=== PATIENT | male | born 1950 | race Caucasian/White ===

== ENCOUNTER 2021-03-29 13:24 | Inpatient (IN) | payer MEDICARE, MEDICAID, SELFPAY ==
[2021-03-29] VITALS (30 sets, daily range): BP systolic 103–160; BP diastolic 81–110; PULSE 96–163; RESP 16–46; TEMP 35.5; O2SAT 80–100
--- NOTE | 2021-03-29 11:57 | XR_ITS ---
WS: [id number] Exam: XR chest 1V portable [id number] Date/Time of Exam: 03/29/2021 11:57 AM Reason For Exam: resp distress Comparison 12/03/2016. Right upper lobe infiltrate noted suggesting pneumonia. 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 The lungs are fully expanded. Heart size is normal. Large hiatal hernia. Fullness of the mediastinum on the right is unchanged. Regional bony structures are intact. Monitoring leads superimp ose the chest. XR/XR chest 1V portable [id number] IMPRESSION: 1. Right upper lobe infiltrate suggesting pneumonia. 2. 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 3. Large hiatal hernia. Chronic widening of the right superior mediastinum.
--- NOTE | 2021-03-29 11:57 | ECG_ITS ---
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 Measurements Intervals [place] Rate: 97 P: 72 ND: 189 QRS: -26 QRSD: 89 T: 10 QT: 352 QTc: 448 Interpretive Statements Possible side RHYTHM WITH OCCASIONAL SUPRAVENTRICULAR PREMATURE COMPLEXES SEPTAL MYOCARDIAL INFARCTION , PROBABLY OLD [40+ ms Q WAVE IN V1/V2] INFERIOR MYOCARDIAL INFARCTION , OF INDETERMINATE AGE [40+ ms Q WAVE AND/OR ST/T ABNORMALITY IN II/aVF] Compared to ECG 12/03/2016 21:19:05 THe comparison is difficult because of the differences in technical quality Heavy baseline artifact, need to repeat Electronically Signed On 03-29-2021 17:50:45 TAIL BOARD WORKER by Zenaida Briones M.D. [id number]
--- NOTE | 2021-03-29 12:02 | W.ED.AMS ---
HPI - Altered Mental Status General: Chief Complaint: Altered Mental Status Stated Complaint: slurred speech, ams Source: EMS Mode of arrival: EMS Limitations: altered mental status History of Present Illness: HPI narrative: 70-year-old male brought in by EMS after family found him on the floor in his house with altered mental status. Last known well 2-3 days ago. Drinks a lot of alcohol per family, EMS did observe a large number of empty beer cans around the area where the patient was laying. Initial O2 sats 60s, improved to 90s on 15 L NRB Mentation improved slightly in route, he was able to follow directions, answer yes or no questions. No previous medical records available, MD complaint: altered mental status, confusion, decreased responsiveness and weakness Onset (ago): day(s) Context: alcohol abuse Treatments prior to arrival: IV fluid and oxygen Review of Systems General: Reports: ROS unobtainable due to mental status Const: Reports: body aches, change in appetite, fatigue and malaise Eyes: Reports: eye redness Card: Reports: acrocyanosis Resp: Reports: dyspnea, productive cough and chest congestion GI: Denies: nausea or vomiting Musc: Reports: joint pain and muscle weakness Skin/Breast: Reports: skin tenderness and sores Neuro: Reports: difficulty walking, behavioral changes, Slurred speech present and difficulty communicating thoughts Physical Exam Const: GENERAL APPEARANCE: in distress, disheveled, lethargic, ill appearing and frail appearing NUTRITIONAL APPEARANCE: cachectic ORIENTATION/CONSCIOUSNESS: Yes awake, Yes oriented to person, Yes oriented to place and Yes lethargic; not oriented to time HENMT: COMMON NORMALS: normocephalic and atraumatic HEAD & SCALP: normocephalic and atraumatic FACE & SINUS: face symmetric Eye: COMMON NORMALS: Equal, round and reactive pupils present, EOMs intact bilaterally, conjunctivae normal (Right eye watering) and no scleral icterus CONJUNCTIVA: Yes conjunctivae normal (Right eye watering) SCLERA: scleral abnormal Laterality of scleral abnormality: positive right scleral injection PUPIL: Yes Equal, round and reactive pupils present Neck/C-Spine: COMMON NORMALS: supple and no JVD GENERAL: Yes normal visual inspection Chest: COMMONS NORMALS: normal inspection of the chest Resp: EFFORT & INSPECTION: Yes symmetric chest movement, Yes abnormal respiratory pattern, Yes tachypneic, Yes labored, Yes Actively coughing rattling and No tracheal deviation AUSCULTATION: crackles, rhonchi throughout and bronchovesicular breath sounds Cardio: COMMON NORMALS: no JVD RHYTHM: abnormal rhythm irregularly irregular and with ectopic beats GI: COMMON NORMALS: Normal to inspection, nondistended, normoactive bowel sounds present and Soft to palpation PALPATION: Yes Soft to palpation and No Guarding due to palpation present (GI) : MALE GROIN/PERINEUM EXAM: No ecchymosis, No edema, No erythema and Yes tenderness PENIS: uncircumcised Back/Pelvis: GENERAL BACK: Yes erythema, Yes ecchymosis and Yes tenderness THORACIC SPINE/UPPER BACK: Yes other soft tissue findings Other thoracic soft tissue findings laterality: right Right other thoracic soft tissue findings details: erythema, ecchymosis, tenderness and other (Unstageable necrotic ulcer ) LUMBAR SPINE/LOWER BACK: Yes other soft tissue findings Other lumbar soft tissue findings laterality: bilateral Bilateral other lumbar soft tissue findings details: erythema, tenderness and other (Multiple sacral decubitus ulcers, necrotic, unstageable) PELVIS: Yes buttock abnormal Buttock abnormal laterality: bilateral Bilateral buttock abnormal details: tenderness, erythema and other (Diffuse erythema, 3 x 3 cm shallow ulceration right buttocks.) SACRUM: erythema and tenderness positive midline and bilaterally COCCYX: Coccyx tenderness present BACK IMAGE (MALE): 1. necrotic ulceration, surrounding ecchymosis 2. multiple coalescent necrotic ulcers, unstageable 3. 3x3cm shallow ulcer Extremity: NARRATIVE EXTREMITY EXAM: Scattered ecchymosis, abrasions in various stages of healing. GENERAL: Yes clubbing and Yes cyanosis RIGHT UPPER EXTREMITY: Yes elbow joint (Ecchymosis) Neuro: SENSORIUM/ORIENTATION: Yes oriented to person, Yes oriented to place, No oriented to time and Yes lethargic SPEECH: abnormal speech Details: garbled GAIT: Yes Unable to assess gait Psych: COMMON NORMALS: cooperative Skin: GENERAL SKIN EXAM: ecchymosis and turgor decreased WOUNDS: Yes wounds noted (Sacrum, right upper back) bed necrotic, margins necrotic, well approximated and with surrounding erythema and without odor NAILS: clubbing and discolored Sepsis: Is patient septic: Yes Focused sepsis exam performed: Yes Course Vital Signs: Vital signs: Vital Signs Temperature 95.9 F L 03/29/21 13:42 Pulse Rate 99 03/29/21 15:15 Respiratory Rate 46 H 03/29/21 15:15 Blood Pressure 123/92 03/29/21 15:00 Pulse Oximetry 98 03/29/21 15:15 MDM - Altered Mental Status MDM Narrative: Medical decision making narrative: 70-year-old brought in by ambulance with hypoxic respiratory distress and altered mental status. Problems; Acute renal failure Rhabdomyolysis, Sepsis without septic shock Numerous unstageable pressure wounds COVID?19 positive Multiple age-indeterminate vertebral fractures Subacute/age-indeterminate lacunar infarcts of the left cerebellum and basal ganglia. Aspiration pneumonia Treatments; IV Rocephin 1 g IV Zithromax 500 mg 2000 cc IV fluid bolus; lactic acid 8.7 --> 4.8, Maintenance fluids at 100/hr, Supplemental oxygen; initially required 15 L via NRB, weaned down to 4 L nasal cannula Decadron 6 mg IV Thiamine 100mg IV Plan: Continue IV fluids, closely monitor urine output. Trend CK. Wound care/general surgery consult re decubitus ulcers Monitor for signs and symptoms of alcohol withdrawal All Results and plan of care were discussed with the patient as well as several family members(over the phone). He stated multiple times that he did not want to be on a ventilator or recieve CPR. His family confirmed that he has discussed these wishes with them as well. He is agreeable to being admitted for further supportive care, Discussed with Dr Jackson, telephone quotation clerk hospitalist. Lab Data: Labs: Lab Results 03/29/21 03/29/21 03/29/21 12:15 12:15 12:15 WBC 6.4 10^3/uL 10^3/ uL (4.0-10.0) RBC 5.53 10^6/uL H 10 ^6/uL (4.1-5.3) Hgb 17.3 g/dL H g/dL (11.7-16.6) Hct 51.0 % % (42.0-52.0) MCV 92.2 fl fl (80-94) MCH 31.3 pg pg (28.0-34.0) MCHC 33.9 g/dL g/dL (30.0-36.0) RDW 12.4 % % (12.1-15.1) Plt Count 94 10^3/cmm L 10^ 3/cmm (130-400) MPV 13.0 fL H fL (7.4-10.4) Neut % (Auto) 92.1 % % Lymph % (Auto) 3.6 % % [place] % (Auto) 2.4 % % Eos % (Auto) 0.0 % % Baso % (Auto) 1.1 % % Neut # (Auto) 5.86 10^3/uL 10^3 /uL (1.8-7.7) Lymph # (Auto) 0.2 10^3/uL L 10^ 3/uL (0.8-4.8) [place] # (Auto) 0.2 10^3/uL 10^3/ uL (0.2-0.9) Eos # (Auto) 0.0 10^3/uL 10^3/ uL (0.0-0.8) Baso # (Auto) 0.1 10^3/uL 10^3/ uL (0.0-0.1) Nucleated RBC % (a uto) 0.5 % % Nucleated RBCs # 0.0 /100WBC /100W BC D-Dimer Specimen Type Sample Site ABG pH ABG pCO2 ABG pO2 ABG HCO3 ABG O2 Saturation ABG Base Excess Emil Test A-a O2 Gradient Hematocrit Hgb O2 Saturation Carboxyhemoglobin Methemoglobin Total Hemoglobin Ionized Calcium O2 Delivery Device O2 Liters/Min FiO2 Ore Fielder ID Sodium 140 mmol/L mmol/L (136-145) Potassium 3.7 mmol/L mmol/L (3.5-5.1) Chloride 97 mmol/L L mmol/ L (98-107) Carbon Dioxide 15 mmol/L L mmol/ L (22-29) Anion Gap 31.7 H (5-19) BUN 68 mg/dL H mg/dL (8-23) Creatinine 2.9 mg/dL H mg/dL (0.7-1.2) GFR Calculation Not Reportable Glucose 134 mg/dL H mg/dL (65-115) Calculated Osmolal ity 312 mOsm/kg H mOs m/kg (285-295) Lactic Acid 8.7 mmol/L H* mmo l/L (0.5-2.2) Lactic Acid (Sepsi s) Calcium 8.8 mg/dL mg/dL (8.5-10.5) Magnesium 2.7 mg/dL H mg/dL (1.7-2.3) Total Bilirubin 0.7 mg/dL mg/dL (0.15-1.2) AST 86 U/L H U/L (0-40) ALT 31 U/L U/L (0-41) Alkaline Phosphata se 102 IU/L IU/L (40-130) Creatine Kinase 1869 U/L H* U/L (39-308) NT-Pro-B Natriuret Pep 5569 pg/mL H pg/m L (0-125) Total Protein 7.5 g/dL g/dL (6.6-8.7) Albumin 2.6 g/dL L g/dL (3.5-5.2) Globulin 4.9 g/dL H g/dL (1.3-4.6) Procalcitonin TSH Urine Color Urine Appearance Urine pH Ur Specific Gravit y Urine Protein Urine Glucose (UA) Urine Ketones Urine Blood Urine Nitrate Urine Bilirubin Urine Urobilinogen Ur Leukocyte Charlene ase Urine RBC Urine WBC Ur Squamous Epith Cells Amorphous Sediment Urine Bacteria Hyaline Casts Urine Mucus Ethyl Alcohol < 10 mg/dL mg/dL (0-10) Coronavirus 229E ( PCR) SARS-CoV-2 (PCR) 03/29/21 03/29/21 03/29/21 12:15 12:15 12:40 WBC RBC Hgb Hct MCV MCH MCHC RDW Plt Count MPV Neut % (Auto) Lymph % (Auto) [place] % (Auto) Eos % (Auto) Baso % (Auto) Neut # (Auto) Lymph # (Auto) [place] # (Auto) Eos # (Auto) Baso # (Auto) Nucleated RBC % (a uto) Nucleated RBCs # D-Dimer 2.33 ug/mIFEU H u g/mIFEU (0-0.59) Specimen Type Sample Site ABG pH ABG pCO2 ABG pO2 ABG HCO3 ABG O2 Saturation ABG Base Excess Emil Test A-a O2 Gradient Hematocrit Hgb O2 Saturation Carboxyhemoglobin Methemoglobin Total Hemoglobin Ionized Calcium O2 Delivery Device O2 Liters/Min FiO2 Ore Fielder ID Sodium Potassium Chloride Carbon Dioxide Anion Gap BUN Creatinine GFR Calculation Glucose Calculated Osmolal ity Lactic Acid Lactic Acid (Sepsi s) Calcium Magnesium Total Bilirubin AST ALT Alkaline Phosphata se Creatine Kinase NT-Pro-B Natriuret Pep Total Protein Albumin Globulin Procalcitonin 1.24 ng/mL H ng/m L (0-0.5) TSH 1.15 uIU/mL uIU/m L (0.27-4.20) Urine Color Urine Appearance Urine pH Ur Specific Gravit y Urine Protein Urine Glucose (UA) Urine Ketones Urine Blood Urine Nitrate Urine Bilirubin Urine Urobilinogen Ur Leukocyte Charlene ase Urine RBC Urine WBC Ur Squamous Epith Cells Amorphous Sediment Urine Bacteria Hyaline Casts Urine Mucus Ethyl Alcohol Coronavirus 229E ( PCR) Not detected (NOT DETECT) SARS-CoV-2 (PCR) Detected A (NOT DETECT) 03/29/21 03/29/21 03/29/21 13:51 15:11 15:15 WBC RBC Hgb Hct MCV MCH MCHC RDW Plt Count MPV Neut % (Auto) Lymph % (Auto) [place] % (Auto) Eos % (Auto) Baso % (Auto) Neut # (Auto) Lymph # (Auto) [place] # (Auto) Eos # (Auto) Baso # (Auto) Nucleated RBC % (a uto) Nucleated RBCs # D-Dimer Specimen Type Arterial Sample Site Brachial, left ABG pH 7.39 (7.35-7.45) ABG pCO2 28.8 mmHg L mmHg (35-45) ABG pO2 61.4 mmHg L mmHg (80.0-100.0) ABG HCO3 17.4 mmol/L L mmo l/L (22-26) ABG O2 Saturation 86.5 ABG Base Excess -6.2 mmol/L L mmo l/L (-2.0-2.0) Emil Test N/a A-a O2 Gradient 20.6 mmHg H mmHg (5-10) Hematocrit 45.5 % % (42-52) Hgb O2 Saturation 86.1 % L % (95-100) Carboxyhemoglobin 0.1 %THgb L %THgb (0.4-20.1) Methemoglobin 0.3 % L % (0.4-1.5) Total Hemoglobin 14.9 g/dL g/dL (14-18) Ionized Calcium 1.1 mmol/L mmol/L (1.1-1.4) O2 Delivery Device Nc O2 Liters/Min 4.0 % % FiO2 36.0 % % Ore Fielder ID Amh Sodium 145.0 mmol/L H mm ol/L (131-143) Potassium 3.3 mmol/L L mmol /L (3.5-5.0) Chloride Carbon Dioxide Anion Gap BUN Creatinine GFR Calculation Glucose 129.0 mg/dL H mg/ dL (70-115) Calculated Osmolal ity Lactic Acid Lactic Acid (Sepsi s) 4.8 mmol/L H* mmo l/L (0.5-2.2) Calcium Magnesium Total Bilirubin AST ALT Alkaline Phosphata se Creatine Kinase NT-Pro-B Natriuret Pep Total Protein Albumin Globulin Procalcitonin TSH Urine Color Yellow (Yellow) Urine Appearance Sl hazy (CLEAR) Urine pH 5 (5-7) Ur Specific Gravit y 1.025 (1.005-1.030) Urine Protein Trace (Negative) Urine Glucose (UA) Norm (Normal) Urine Ketones 1+ H (Negative) Urine Blood 3+ H (Negative) Urine Nitrate Negative (Negative) Urine Bilirubin 2+ H (Negative) Urine Urobilinogen 1 mg/dL H mg/dL (Negative) Ur Leukocyte Charlene ase Negative (Negative) Urine RBC 0-4 /hpf H /hpf (0-2) Urine WBC 0-4 /hpf H /hpf (0-5) Ur Squamous Epith Cells 0-4 /hpf H /hpf (0-5) Amorphous Sediment 2+ /hpf /hpf Urine Bacteria None /hpf /hpf (NONE) Hyaline Casts 5-10 /lpf H /lpf Urine Mucus 4+ /hpf /hpf Ethyl Alcohol Coronavirus 229E ( PCR) SARS-CoV-2 (PCR) 03/29/21 17:00 WBC RBC Hgb Hct MCV MCH MCHC RDW Plt Count MPV Neut % (Auto) Lymph % (Auto) [place] % (Auto) Eos % (Auto) Baso % (Auto) Neut # (Auto) Lymph # (Auto) [place] # (Auto) Eos # (Auto) Baso # (Auto) Nucleated RBC % (a uto) Nucleated RBCs # D-Dimer Specimen Type Sample Site ABG pH ABG pCO2 ABG pO2 ABG HCO3 ABG O2 Saturation ABG Base Excess Emil Test A-a O2 Gradient Hematocrit Hgb O2 Saturation Carboxyhemoglobin Methemoglobin Total Hemoglobin Ionized Calcium O2 Delivery Device O2 Liters/Min FiO2 Ore Fielder ID Sodium Potassium Chloride Carbon Dioxide Anion Gap BUN Creatinine GFR Calculation Glucose Calculated Osmolal ity Lactic Acid 4.5 mmol/L H* mmo l/L (0.5-2.2) Lactic Acid (Sepsi s) Calcium Magnesium Total Bilirubin AST ALT Alkaline Phosphata se Creatine Kinase NT-Pro-B Natriuret Pep Total Protein Albumin Globulin Procalcitonin TSH Urine Color Urine Appearance Urine pH Ur Specific Gravit y Urine Protein Urine Glucose (UA) Urine Ketones Urine Blood Urine Nitrate Urine Bilirubin Urine Urobilinogen Ur Leukocyte Charlene ase Urine RBC Urine WBC Ur Squamous Epith Cells Amorphous Sediment Urine Bacteria Hyaline Casts Urine Mucus Ethyl Alcohol Coronavirus 229E ( PCR) SARS-CoV-2 (PCR) Critical Care Time Critical Care Time: Critical Care Time: Yes Total Critical Care Time: 45 Attestation: This case had a high probability of a clinically significant, sudden, or life threatening deterioration of this patient's condition which required my full and direct attention, intervention and personal management. Discharge Plan Discharge Patient Disposition: Admitted As Inpatient Clinical Impression: Lactic acidemia, Decubitus ulcer of back, unstageable, Unstageable skin ulcer of sacral region, Fall in elderly patient, Debilitated patient, COVID-19 Altered mental status Qualifiers: Altered mental status type: stupor Qualified Code(s): R40.1 - Stupor Sepsis Qualifiers: Sepsis type: sepsis due to unspecified organism Sepsis acute organ dysfunction status: with acute organ dysfunction Severe sepsis acute organ dysfunction type: acute respiratory failure Acute respiratory failure type: with hypoxia Severe sepsis shock status: without septic shock Qualified Code(s): A41.9 - Sepsis, unspecified organism Rhabdomyolysis Qualifiers: Rhabdomyolysis type: non-traumatic Qualified Code(s): M62.82 - Rhabdomyolysis Acute renal failure Qualifiers: Acute renal failure type: unspecified Qualified Code(s): N17.9 - Acute kidney failure, unspecified Pneumonia Qualifiers: Pneumonia type: due to unspecified organism Laterality: right Lung location: upper lobe of lung Qualified Code(s): J18.9 - Pneumonia, unspecified organism Condition: Stable Coding Level of Care Code ED [facility] Fwd Exam Comprehensive Sepsis Event Note Evaluation Current stage of sepsis: severe sepsis Possible source: pulmonary, genitourinary, skin/soft tissue and wound Focused Exam Vital Signs Temp Pulse Resp BP Pulse Ox 03/29/21 15:15 99 46 H 98 03/29/21 15:00 97 44 H 123/92 98 03/29/21 14:45 98 43 H 89 L 03/29/21 14:33 108 H 29 H 03/29/21 14:00 101 H 34 H 97 03/29/21 13:45 105 H 34 H 127/110 94 03/29/21 13:42 95.9 F L 107 H 28 H 127/110 98 03/29/21 13:30 108 H 33 H 95 03/29/21 13:15 108 H 39 H 97 03/29/21 13:00 105 H 41 H 93 03/29/21 12:45 113 H 32 H 100 03/29/21 12:41 112 H 35 H 94 03/29/21 11:45 96 38 H 128/90 Respiratory exam: Present accessory muscle use, rales and respiratory distress Cardiovascular exam: Present tachycardia and irregular rhythm Capillary refill: > 3 Seconds Peripheral pulse strength: 2+ Slightly Diminished Peripheral pulse location: Radial Skin exam: pale and mottling Date exam was performed: 03/29/21 Time exam was performed: 17:59 Bedside Monitoring Bedside ultrasound performed: No Fluid responsiveness: Fluid Responsive Date bedside monitoring was performed: 03/29/21 Time bedside monitoring was performed: 17:59
[2021-03-29 12:39] LABS: Basophils # 0.1 10^3/uL (0.0-0.1); Basophils % 1.1 %; Hemoglobin 17.3 g/dL (11.7-16.6); Lymphocytes # 0.2 10^3/uL (0.8-4.8); Lymphocytes % 3.6 %; Mean Corpuscular HGB Conc 33.9 g/dL (30.0-36.0); Mean Corpuscular Hemoglobin 31.3 pg (28.0-34.0); Mean Corpuscular Volume 92.2 fl (80-94); Monocytes # 0.2 10^3/uL (0.2-0.9); Monocytes % 2.4 %; Neutrophils # 5.86 10^3/uL (1.8-7.7); Neutrophils % 92.1 %; Nucleated Red Blood Cells % 0.5 %; Platelet Count 94 10^3/cmm (130-400); Red Blood Count 5.53 10^6/uL (4.1-5.3); Red Cell Distribution Width 12.4 % (12.1-15.1); White Blood Count 6.4 10^3/uL (4.0-10.0)
[2021-03-29] MEDS: cefTRIAXone 1,000 MG in sodium chloride 0.9% (plus) 50 ML 100 MG IV (12:43)
[2021-03-29 12:53] LABS: Lactic Sepsis W/Reflex 8.7 mmol/L (0.5-2.2)
[2021-03-29 13:11] LABS: Alanine Aminotransferase 31 U/L (0-41); Albumin Level 2.6 g/dL (3.5-5.2); Alkaline Phosphatase 102 IU/L (40-130); Anion Gap 31.7 (5-19); Aspartate Amino Transferase 86 U/L (0-40); Blood Urea Nitrogen 68 mg/dL (8-23); Calcium 8.8 mg/dL (8.5-10.5); Carbon Dioxide 15 mmol/L (22-29); Chloride 97 mmol/L (98-107); Globulin 4.9 g/dL (1.3-4.6); Glucose 134 mg/dL (65-115); Magnesium 2.7 mg/dL (1.7-2.3); NT Pro B Type Natriuretic Pept 5569 pg/mL (0-125); Osmolality Calculated 312 mOsm/kg (285-295); Potassium 3.7 mmol/L (3.5-5.1); Sodium 140 mmol/L (136-145); Total Bilirubin 0.7 mg/dL (0.15-1.2); Total Protein 7.5 g/dL (6.6-8.7)
[2021-03-29 13:16] LABS: Alcohol Level < 10 mg/dL (0-10)
[2021-03-29 13:17] LABS: Creatine Phosphokinase 1869 U/L (39-308)
[2021-03-29 13:19] LABS: Slide Review Slide Review Perform
[2021-03-29] MEDS: sodium chloride 0.9% 1,000 ML 999 ML IV (13:40)
[2021-03-29] MEDS: azithromycin 500 MG in sodium chloride 0.9% 250 ML 250 MG IV (13:40)
--- NOTE | 2021-03-29 13:52 | CT_ITS ---
WS: [id number] CT CERVICAL SPINE HISTORY: fall, elderly with AMS, pain TECHNIQUE: Contiguous 2.5 mm axial imaging performed through the entire cervical spine. Sagittal and coronal reformats also performed. All CT scans at [facility] use at least one of these dose o ptimization techniques: automated exposure control; mA and/or kV adjustment per patient size (include s targeted exams where dose is matched to clinical indication); or iterative reconstruction. DLP: 478.9 mGy.cm COMPARISON: 07/26/2015 Patient's head is rotated for this examination. Progression of degenerative disc disease and facet gabriel int arthritis since the prior study. No fractures are identified. Facet joint alignment is normal. Th ere is advanced facet joint arthritis with multilevel level areas of foraminal stenosis. Calcifications are noted at the skull base in the vertebral arteries. There are a few foci of air wit hin the RIGHT masseter space. Remote fracture involving the zygomatic arch. No skull base fracture is identified. Severe paraseptal emphysematous changes at the lung apices. CT/CT cervical spin wo con* [id number] IMPRESSION: 1. Quality of this examination is limited by significant rotation and mild mot ion artifact. 2. Advanced degenerative disc disease and spondylosis which has progressed sin ce 2016. 3. No fractures are identified. 4. Multilevel areas of foraminal stenosis. 5. There are a few small foci of air in the RIGHT masseter space of uncertain etiology. There is a remote fracture involving the RIGHT zygomatic arch.
--- NOTE | 2021-03-29 13:52 | CT_ITS ---
WS: [id number] CT HEAD NONCONTRAST HISTORY: AMS TECHNIQUE: Contiguous axial imaging performed through the brain in 2.5 mm imaging. Bone and soft tiss ue windows. Sagittal and coronal reformats reviewed. All CT scans at [facility] use at least one of these dose optimization techniques: automated exposure control; mA and/or kV adjustment per pa tient size (includes targeted exams where dose is matched to clinical indication); or iterative recon struction. DLP: 947.46 mGy.cm COMPARISON: 12/03/2016 Progression of bilateral advanced cerebral atrophy since the prior study. Chronic microvascular ische isabela changes. Numerous bilateral lacunar infarcts are noted predominantly within the basal ganglia. Gr eater amount of lacunar infarcts on the LEFT. No acute area of sulcal effacement. Additional lacunar infarct in the LEFT cerebellum is probably new since 2017. Moderate amount of atrophy is symmetric bilaterally. Ventricles: Mild ventricular enlargement. Paranasal sinuses: Mucoperiosteal thickening in the maxillary sinuses. Mastoid air cells: Well pneumatized. Calvarium and scalp: Skull is intact with no soft tissue edema or swelling. CT/CT head wo con* [id number] IMPRESSION: 1. Advanced cerebral atrophy with numerous lacunar infarcts in the basal gangl ia. Changes have progressed since 12/03/2016. 2. Bilateral cerebellar atrophy with a LEFT cerebellar lacunar infarct. 3. No acute hemorrhage.
--- NOTE | 2021-03-29 13:54 | CT_ITS ---
WS: [id number] CT CHEST, ABDOMEN AND PELVIS WITHOUT CONTRAST. HISTORY: elderly fall, sepsis, AMS, diffuse pain and bruising TECHNIQUE: Contiguous 5 mm axial imaging performed through the chest, abdomen and pelvis without IV c ontrast, oral contrast has been provided. Coronal and sagittal reformats chest. Coronal and sagittal reformats through the abdomen and pelvis. All CT scans at [facility] use at least one of thes e dose optimization techniques: automated exposure control; mA and/or kV adjustment per patient size (includes targeted exams where dose is matched to clinical indication); or iterative reconstruction. CONTRAST: None DLP: 1256.45 mGy.cm COMPARISON: 12/21/[address]: Limited by motion artifact. Extensive paraseptal emphysema. Scattered reticular nodular inf iltrates and consolidations throughout all lobes but greatest involving the lower lobes. Moderate ath erosclerosis aorta. No aneurysm. Normal size pulmonary artery. Heart size is mildly enlarged with cor onary artery calcifications. No adenopathy. No pneumothorax. Large hiatal hernia. Abdomen CT: Limited by motion artifact. There is extensive motion artifact throughout the abdomen and pelvis. Liver is not enlarged. Spleen appears normal size. Very limited evaluation of pancreas and a drenal glands. The gallbladder is not definitely identified. Cannot exclude bile duct dilatation. No renal obstruction. Moderate atherosclerosis aorta. Although no free air is identified pockets of free air would be difficult to exclude. PI does not appear to be obstructed. Pelvic CT: No free fluid or adenopathy in the pelvis. Central prostate gland calcifications. T7 and T9 compression fractures. T9 fracture was described on a prior radiograph from 2016. No retrop ulsion. There is mild concave deformity of the superior endplate of T11. Additional compression fract ures involving L2 and L3 with severe disc space narrowing at L4-5. CT/CT chest abd pel wo con IMPRESSION: 1. Quality of this examination is limited by patient motion artifact. 2. Severe centrilobular emphysema. 3. Multi lobar reticular nodular opacifications from pneumonia. Consider aspir ation pneumonia. 4. Small pockets of free air would be difficult to exclude with this amount of motion. 5. No free fluid identified. 6. Numerous thoracic and lumbar spine compression fractures are age indetermin ate.
[2021-03-29 14:03] LABS: ABG PCO2 28.8 mmHg (35-45); ABG PH Result 7.39 (7.35-7.45); Alveolar-Arterial Oxygen Gradi 20.6 mmHg (5-10); Arterial Blood Gas Hematocrit 45.5 % (42-52); Base Excess ABG -6.2 mmol/L (-2.0-2.0); Blood Gas Operator Identificat AMH; Blood Gas Sample Site Brachial, left; Blood Gas Sample Type Arterial; Carboxyhemoglobin 0.1 %THgb (0.4-20.1); HCO3 ABG 17.4 mmol/L (22-26); HGB O2 Sat 86.1 % (95-100); Ionized Calcium Level - ABG 1.1 mmol/L (1.1-1.4); Methemoglobin 0.3 % (0.4-1.5); Oxygen Device NC; Oxygen Saturation ABG 86.5; PO2 ABG 61.4 mmHg (80.0-100.0); Potassium Level - ABG 3.3 mmol/L (3.5-5.0); Total Hemoglobin 14.9 g/dL (14-18)
--- NOTE | 2021-03-29 14:03 | PC.PHAR ---
PT UNABLE TO VERIFY MEDICATIONS-PT STATES HE DOESNT KNOW IF HE TAKES MEDICATIONS-NO MEDS PULL UP ON EXT MED HISTORY-
[2021-03-29 14:15] LABS: Reflex Lactate Order REFLEX LACTIC ORDERD
[2021-03-29 14:40] LABS: Adenovirus Not Detected (NOT DETECT); Chlamydia Pneumoniae Not Detected (NOT DETECT); Coronavirus 229E,HKU1,NL63,OC4 Not Detected (NOT DETECT); Human Metapneumovirus Not Detected (NOT DETECT); Human Rhinovirus/Enterovirus Not Detected (NOT DETECT); Influenza A Not Detected (NOT DETECT); Influenza A H1 Not Detected (NOT DETECT); Influenza A H1-2009 Not Detected (NOT DETECT); Influenza A H3 Not Detected (NOT DETECT); Influenza B Not Detected (NOT DETECT); Mycoplasma Pneumoniae Not Detected (NOT DETECT); Parainfluenza Virus Type 1 Not Detected (NOT DETECT); Parainfluenza Virus Type 2 Not Detected (NOT DETECT); Parainfluenza Virus Type 3 Not Detected (NOT DETECT); Parainfluenza Virus Type 4 Not Detected (NOT DETECT); Respiratory Syncytial Virus A Not Detected (NOT DETECT); Respiratory Syncytial Virus B Not Detected (NOT DETECT); SARS-COV-2 Detected (NOT DETECT)
[2021-03-29 15:44] LABS: Lactic Acid level (Lactate) 4.8 mmol/L (0.5-2.2)
[2021-03-29 16:13] LABS: Urine Color Yellow (Yellow)
[2021-03-29 16:14] LABS: Add Urine Microscopic? YES; Bilirubin Urine 2+ (Negative); Blood Urine 3+ (Negative); Glucose Urine UA Norm (Normal); Ketones Urine 1+ (Negative); Leukocyte Esterase Urine Negative (Negative); Nitrate Urine Negative (Negative); Protein Urine Trace (Negative); Specific Gravity, Urine 1.025 (1.005-1.030); Urine Appearance SL Hazy (CLEAR); Urobilinogen Urine 1 mg/dL (Negative); pH Urine 5 (5-7)
[2021-03-29 16:22] LABS: Add Urine Culture? No; Amorphous Sediment Urine 2+ /hpf; Mucus Urine 4+ /hpf; RBC Urine 0-4 /hpf (0-2); Squamous Epithelial Cell Urine 0-4 /hpf (0-5); WBC Urine 0-4 /hpf (0-5)
[2021-03-29] MEDS: sodium chloride 0.9% 1,000 ML 100 ML IV (16:38)
[2021-03-29] MEDS: dexamethasone 10 mg/mL INJ 6 MG IVP (16:39)
--- NOTE | 2021-03-29 17:11 | ECG_ITS ---
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 Measurements Intervals [place] Rate: 106 P: 60 LA: 168 QRS: -21 QRSD: 100 T: 151 QT: 354 QTc: 470 Interpretive Statements Possibly SINUS TACHYCARDIA WITH FREQUENT VENTRICULAR PREMATURE COMPLEXES WITH OCCASIONAL SUPRAVENTRICULAR PREMATURE COMPLEXES INFERIOR MYOCARDIAL INFARCTION , PROBABLY OLD [40+ ms Q WAVE AND/OR ST/T ABNORMALITY IN II/aVF] Compared to ECG 03/29/2021 14:47:37 Ventricular premature complex(es) now present Myocardial infarct finding still present Electronically Signed On 03-31-2021 9:28:40 [facility] [employer] by Meredith Gutierrez M.D. [email or web address] lady of [id number]
--- NOTE | 2021-03-29 17:12 | PM.HP ---
Providers/Chief Complaint Primary Care Provider: Juanis Aguayo MD Chief Complaint: slurred speech, ams History of Present Illness Nahum Sheriff is a 70 year old male with a past medical history of alcoholism, who presents to [facility] due to altered mental status. Currently patient is alert to person, not to place, not to time, does not follow commands, tachypneic respiratory 22-25, pulse 99, blood pressure 133/92, on 4 L, easily becomes agitated, has diffuse tremors, wants to be covered under blankets, he does not know why he is here in the hospital, he keeps telling me that he is at home. I rechecked the patient's sister, who tells me that he has 2 sons, who are estranged, he lives by himself, the last time he was seen by his other sister was roughly a week ago. Since then he has not been seen, has a history of alcoholism, depends on family for food, he does not take care of himself according to his sister he has some sort of heart condition but they are not sure. Family checked up on him this morning, and found him on the floor, was confused, he refused to go to the hospital, they called EMS, he refused to go with EMS. They got him up to go to the bathroom, when he collapsed became nonresponsive, according to family he was not breathing for 2 minutes, they again called EMS who came out and brought him to [facility]. He was not acting appropriately, no strokelike symptoms reported. Hearing [facility] patient's found to have high lactic acidosis, acute encephalopathy, acute renal failure, rhabdomyolysis, pneumonia, COVID-19 pneumonia, dehydration, initiation, 4 L, foci of area right masseter space,remote fracture involving the RIGHT zygomatic arch, elevated BNP, left cerebellar lacunar infarct. I discussed patient's CODE STATUS with patient's family members, they says that it was his wish to not be resuscitated, do not be placed on a ventilator. His next of kin of his 2 sons, who are difficult to reach, restraints, they will try to reach out to them. Review of Systems General: Reports: ROS unobtainable due to medical condition and ROS unobtainable due to mental status Medications/Allergies Home Medications Medication Instructions Recorded Confirmed Last Taken Type Unable to Assess 03/29/21 03/29/21 Unknown History Allergies Allergy/AdvReac Type Severity Reaction Status Date / Time No Known Allergies Allergy Verified 03/29/21 11:44 Vitals/I&O/Wt Last Vital Signs Temp 95.9 F L 03/29/21 13:42 Pulse 99 03/29/21 15:15 Resp 46 H 03/29/21 15:15 BP 123/92 03/29/21 15:00 Pulse Ox 98 03/29/21 15:15 03/29/21 03/29/21 03/29/21 06:59 14:59 22:59 Intake Total 1300 / 1300 Balance 1300 / 1300 Weight last 48 hrs Weight 74.843 kg Physical Exam Narrative: EXAM NARRATIVE: Emaciated, temporal muscle wasting, diffuse muscle wasting, multiple bruises Const: EXAM LIMITATIONS: altered mental status GENERAL APPEARANCE: disheveled, ill appearing and frail appearing NUTRITIONAL APPEARANCE: cachectic ORIENTATION/CONSCIOUSNESS: Yes awake and Yes confused; not oriented to person, not oriented to place and not oriented to time HENMT: COMMON NORMALS: normocephalic HEAD & SCALP: normocephalic Eye: COMMON NORMALS: Equal, round and reactive pupils present GENERAL EYE: appearance normal, both eyes and all related structures PUPIL: Yes Equal, round and reactive pupils present DIRECT OPHTHALMOSCOPY: Yes no papilledema Neck/C-Spine: COMMON NORMALS: full ROM, no lymphadenopathy, no JVD and Thyroid normal THYROID: Thyroid normal OTHER: Multiple bruises, throughout face Lymph: LYMPHATIC: no lymphadenopathy noted Resp: COMMON NORMALS: normal respiratory effort, No retractions and No use of accessory muscles AUSCULTATION: crackles and wheezes Cardio: COMMON NORMALS: no JVD, regular rate, regular rhythm, S1 normal heart sound present, S2 normal heart sound present, No gallops present (Cardio), No clicks present (Cardio) and No murmurs present (Cardio) RATE: regular rate RHYTHM: regular rhythm HEART SOUNDS: S1 normal heart sound present and S2 normal heart sound present GI: COMMON NORMALS: Normal to inspection, nondistended, normoactive bowel sounds present, Soft to palpation, non-tender and No hepatosplenomegaly present PALPATION: Yes Soft to palpation and Yes No hepatosplenomegaly present Extremity: COMMON NORMALS: normal to inspection, full ROM and no pedal edema Neuro: COMMON NORMALS: moves all extremities OTHER: Does not follow neurologic testing Psych: THOUGHT PROCESS: confused Sepsis: Is patient septic: Yes Focused sepsis exam performed: Yes Date exam was performed: 03/29/21 Time exam was performed: 17:20 Data : 03/29/21 12:15 03/29/21 12:15 Micro: Microbiology 03/29/21 12:15 Blood Culture - Preliminary Blood SPECIMEN COLLECTED 03/29/21 12:15 Blood Culture - Preliminary Blood SPECIMEN COLLECTED A&P Assessment and plan (1) Altered mental status: Status: Acute Qualifiers: Altered mental status type: stupor Qualified Code(s): R40.1 - Stupor (2) Sepsis: Status: Acute Qualifiers: Acute respiratory failure type: with hypoxia Sepsis acute organ dysfunction status: with acute organ dysfunction Sepsis type: sepsis due to unspecified organism Severe sepsis acute organ dysfunction type: acute respiratory failure Severe sepsis shock status: without septic shock Qualified Code(s): A41.9 - Sepsis, unspecified organism; R65.20 - Severe sepsis without septic shock; J96.01 - Acute respiratory failure with hypoxia (3) Rhabdomyolysis: Status: Acute Qualifiers: Rhabdomyolysis type: non-traumatic Qualified Code(s): M62.82 - Rhabdomyolysis (4) Acute renal failure: Status: Acute Qualifiers: Acute renal failure type: unspecified Qualified Code(s): N17.9 - Acute kidney failure, unspecified (5) Pneumonia: Status: Acute Qualifiers: Laterality: right Lung location: upper lobe of lung Pneumonia type: due to unspecified organism Qualified Code(s): J18.9 - Pneumonia, unspecified organism (6) Lactic acidemia: Status: Acute (7) Decubitus ulcer of back, unstageable: Status: Acute (8) Fall in elderly patient: Status: Acute (9) Debilitated patient: Status: Acute (10) COVID-19: Status: Acute (11) Lacunar infarction: Status: Acute (12) Facial trauma: Status: Acute (13) Hypoxia: Status: Acute (14) Alcohol withdrawal: Status: Acute (15) Thrombocytopenia: Status: Acute Additional A&P Information Acute encephalopathy -Secondary to pneumonia, COVID-19, rhabdo, fall, rhabdo, dehydration COVID-19 pneumonia -Oxygen therapy -Budesonide, ipratropium -Vitamin C, vitamin D, zinc -Sputum cultures, blood cultures, urine bacterial antigens -Remdesivir day 1 of 5 -Decadron day 1 of 10 -Incentive spirometer, flutter valve Pneumonia -Vancomycin, Zosyn -Follow cultures -Monitor respiratory status Lactic acidosis Dehydration, rhabdo, pneumonia -Sepsis -Secondary to pneumonia, COVID-19 -Antibiotics, IV fluids, midodrine Acute renal failure -Sec to sepsis, rhabdomyolysis -Monitor creatinine, urine output, continue IV fluids Rhabdomyolysis, as above Alcohol withdrawal -CIWA score Lacunar infarct, cerebellum, continue to monitor -Aspirin, statin Facial trauma -A few foci of air were noted within the RIGHT masseter space on the cervical spine CT. These foci of air are identified adjacent to the mandibular condyle. There is a remote zygomatic arch. No acute fractures are identified on this unenhanced study but there is significant motion artifact. If necessary when the patient becomes cooperative facial bone CT may be helpful. -CT facial bone DNR/DNI Lovenox for DVT prophylaxis Protonix for GI prophylaxis Attestations Medical Necessity Statement*: Patient requires hospitalization, inpatient, greater than 2 minutes, for acute encephalopathy, COVID-19, pneumonia, lactic acidosis, sepsis, acute renal failure, rhabdo, alcohol withdrawal, Coding Level of Care Code Acute Health Outreach Worker for [facility] Diagnoses Altered mental status R40.1 Altered mental status type: stupor Sepsis A41.9; R65.20; J96.01 Acute respiratory failure type: with hypoxia Sepsis acute organ dysfunction status: with acute organ dysfunction Sepsis type: sepsis due to unspecified organism Severe sepsis acute organ dysfunction type: acute respiratory failure Severe sepsis shock status: without septic shock Rhabdomyolysis M62.82 Rhabdomyolysis type: non-traumatic Acute renal failure N17.9 Acute renal failure type: unspecified Pneumonia J18.9 Laterality: right Lung location: upper lobe of lung Pneumonia type: due to unspecified organism Lactic acidemia E87.2 Decubitus ulcer of back, unstageable L89.100 Fall in elderly patient R29.6 Debilitated patient R53.81 COVID-19 U07.1 Lacunar infarction I63.81 Facial trauma S09.93XA Hypoxia R09.02 Alcohol withdrawal F10.239 Thrombocytopenia D69.6 Sepsis Event Note Evaluation Current stage of sepsis: severe sepsis Possible source: pulmonary Focused Exam Vital Signs Temp Pulse Resp BP Pulse Ox 03/29/21 15:15 99 46 H 98 03/29/21 15:00 97 44 H 123/92 98 03/29/21 14:45 98 43 H 89 L 03/29/21 14:33 108 H 29 H 03/29/21 14:00 101 H 34 H 97 03/29/21 13:45 105 H 34 H 127/110 94 03/29/21 13:42 95.9 F L 107 H 28 H 127/110 98 03/29/21 13:30 108 H 33 H 95 03/29/21 13:15 108 H 39 H 97 03/29/21 13:00 105 H 41 H 93 03/29/21 12:45 113 H 32 H 100 03/29/21 12:41 112 H 35 H 94 03/29/21 11:45 96 38 H 128/90 Respiratory exam: Present wheezes Cardiovascular exam: Present RRR Capillary refill: < 3 Seconds Peripheral pulse strength: 2+ Slightly Diminished Peripheral pulse location: Radial Skin exam: flushed Date exam was performed: 03/29/21 Time exam was performed: 17:22 Problem List (1) Altered mental status: Status: Acute (2) Sepsis: Status: Acute (3) Rhabdomyolysis: Status: Acute (4) Acute renal failure: Status: Acute (5) Pneumonia: Status: Acute (6) Lactic acidemia: Status: Acute (7) Decubitus ulcer of back, unstageable: Status: Acute (8) Fall in elderly patient: Status: Acute (9) Debilitated patient: Status: Acute (10) COVID-19: Status: Acute (11) Lacunar infarction: Status: Acute (12) Facial trauma: Status: Acute (13) Hypoxia: Status: Acute (14) Alcohol withdrawal: Status: Acute (15) Thrombocytopenia: Status: Acute
[2021-03-29 17:33] LABS: D Dimer 2.33 ug/mIFEU (0-0.59)
[2021-03-29 17:48] LABS: Lactic Sepsis W/Reflex 4.5 mmol/L (0.5-2.2)
--- NOTE | 2021-03-29 17:48 | PC.NURSE ---
Lactic 4.[address] Meyer.
[2021-03-29 17:54] LABS: Procalcitonin 1.24 ng/mL (0-0.5); Thyroid Stimulating Hormone 1.15 uIU/mL (0.27-4.20)
[2021-03-29 18:05] LABS: Chol HDL Ratio 5.28 mg/dL (1.0-5.00); Cholesterol 95 mg/dL (0-200); HDL Cholesterol 18 mg/dL (60-100); LDL Cholesterol Calculated 45 mg/dL (50-129); Triglycerides 162 mg/dL (0-150)
[2021-03-29 18:31] LABS: Troponin(5th) Baseline 43 ng/L (0-15)
[2021-03-29 18:53] LABS: Reflex Lactate Order REFLEX LACTIC ORDERD
--- NOTE | 2021-03-29 19:08 | ECG_ITS ---
[facility] Test Date: 2021-03-29 Pat Name: Nahum Sheriff Department: Room: EDIP Gender: Male Preliminary School Psychologist: : 1950 Requested By: Tyler Jackson Order Number: [id number] Sherita MD: Meredith Gutierrez M.D. Measurements Intervals [place] Rate: 103 P: 50 CT: 132 QRS: -37 QRSD: 98 T: 186 QT: 379 QTc: 498 Interpretive Statements SINUS TACHYCARDIA WITH OCCASIONAL VENTRICULAR PREMATURE COMPLEXES WITH FREQUENT SUPRAVENTRICULAR PREMATURE COMPLEXES LEFT AXIS DEVIATION [QRS AXIS < -30] POSSIBLE INFERIOR MYOCARDIAL INFARCTION , PROBABLY OLD [30 ms Q WAVE IN II/aVF] ANTEROSEPTAL MYOCARDIAL INFARCTION , OF INDETERMINATE AGE [40+ ms Q WAVE IN V1-V4] Compared to ECG 03/29/2021 18:15:28 Left-axis deviation now present Myocardial infarct finding still present Electronically Signed On 03-31-2021 9:29:18 HEALTH SERVICES MANAGER by Meredith Gutierrez M.D. [id number]
[2021-03-29 19:58] LABS: Estmated Average Glucose 108; Hemoglobin A1C 5.4 % (4.0-6.0)
[2021-03-29 20:08] LABS: Troponin 5 2HR 43.47 ng/L (0-15); Troponin 5 2HR Delta 0.47 ABS# (0-10)
[2021-03-29 20:10] LABS: Lactic Acid level (Lactate) 3.7 mmol/L (0.5-2.2)
[2021-03-29 20:14] LABS: Amphetamines Screen Urine Negative (Negative); Barbiturates Screen Urine Negative (Negative); Benzodiazepines Screen Urine Negative (Negative); Cocaine Screen Urine Negative (Negative); Opiate Screen Urine Negative (Negative); PCP Screen Urine Negative (Negative); THC Screen Urine Negative (Negative)
[2021-03-29 20:20] LABS: Ammonia 14 umol/L (16-60)
[2021-03-29] MEDS: pantoprazole 40 mg SDV IVP (23:59)
[2021-03-30] VITALS (47 sets, daily range): BP systolic 99–170; BP diastolic 65–147; PULSE 96–125; RESP 20–43; TEMP 36.4; O2SAT 81–100
[2021-03-30] MEDS: enoxaparin 40 mg/0.4 mL Syringe SUBCUT (00:03)
[2021-03-30] MEDS: remdesivir 200 MG in sodium chloride 0.9% (100 ml) 60 ML 100 MG IV (00:14)
[2021-03-30 01:04] LABS: Troponin 5 6HR 37.78 ng/L (0-15)
[2021-03-30 01:05] LABS: Troponin 5 6HR Delta -5.22 ng/L (0-12)
--- NOTE | 2021-03-30 03:17 | PC.PHAR ---
Vancomycin is dosed at 1500mg IVPB every 48 hours to produce a predicted trough level of 14.35 (population based pharmacokinetiic analysis). A trough level has been ordered from the lab to be obtained before the third dose to confirm and adjust if needed. The Zosyn is dosed at 3.375gm IVPB every 8 hours on the basis of the creatinine clearance of 23.5.
[2021-03-30] MEDS: piperacillin-tazobactam 3.375 GM in sodium chloride 0.9% (plus) 50 ML IV ×3 (04:00→20:17)
[2021-03-30] MEDS: vancomycin 1,500 MG/300 ML PIGGYBACK 150 MG IV (04:01)
--- NOTE | 2021-03-30 04:43 | PC.NURSE ---
Patient PO Medications Patient unable to take PO medications. When offered water by straw, patient was not able to take a drink. Hospitalist, Dr. Benitez, informed. Dr. Benitez advised to hold PO meds and speech therapy ordered.
[2021-03-30 06:07] LABS: Basophils % 1.1 %; Hematocrit 44.2 % (42.0-52.0); Hemoglobin 14.6 g/dL (11.7-16.6); Lymphocytes # 0.1 10^3/uL (0.8-4.8); Lymphocytes % 3.7 %; Mean Corpuscular Hemoglobin 30.9 pg (28.0-34.0); Mean Corpuscular Volume 93.4 fl (80-94); Mean Platelet Volume 12.9 fL (7.4-10.4); Monocytes # 0.1 10^3/uL (0.2-0.9); Monocytes % 3.1 %; Neutrophils # 3.19 10^3/uL (1.8-7.7); Neutrophils % 91.2 %; Nucleated Red Blood Cells % 0 %; Platelet Count 58 10^3/cmm (130-400); Red Blood Count 4.73 10^6/uL (4.1-5.3); Red Cell Distribution Width 12.5 % (12.1-15.1); White Blood Count 3.5 10^3/uL (4.0-10.0)
[2021-03-30 06:26] LABS: Lactic Sepsis W/Reflex 2.4 mmol/L (0.5-2.2)
[2021-03-30 06:27] LABS: Alanine Aminotransferase 31 U/L (0-41); Albumin Level 2.4 g/dL (3.5-5.2); Alkaline Phosphatase 79 IU/L (40-130); Anion Gap 22.8 (5-19); Aspartate Amino Transferase 86 U/L (0-40); Blood Urea Nitrogen 74 mg/dL (8-23); Calcium 7.8 mg/dL (8.5-10.5); Carbon Dioxide 20 mmol/L (22-29); Chloride 112 mmol/L (98-107); Globulin 3.4 g/dL (1.3-4.6); Glucose 93 mg/dL (65-115); Magnesium 2.3 mg/dL (1.7-2.3); Osmolality Calculated 334 mOsm/kg (285-295); Phosphorus 3.7 mg/dL (2.5-4.5); Potassium 3.8 mmol/L (3.5-5.1); Sodium 151 mmol/L (136-145); Total Bilirubin 0.5 mg/dL (0.15-1.2); Total Protein 5.8 g/dL (6.6-8.7)
[2021-03-30 06:28] LABS: Slide Review Slide Review Perform
[2021-03-30 06:29] LABS: INR 3.68 (0.8-1.2)
[2021-03-30 06:35] LABS: NT Pro B Type Natriuretic Pept 3581 pg/mL (0-125)
[2021-03-30 07:49] LABS: Reflex Lactate Order REFLEX LACTIC ORDERD
[2021-03-30] MEDS: budesonide 0.5 mg/2 mL Neb INHALATION ×2 (07:52→20:59)
[2021-03-30] MEDS: ipratropium-albuterol 3 mL Neb INHALATION ×2 (07:52→20:59)
--- NOTE | 2021-03-30 09:42 | PC.NURSE ---
PATIENT MORNING PO MEDS NOT GIVEN. PATIENT HAS INCREDIBLE DIFFICULTY WHEN SWALLOWING. DR JURADO PRESENT WITH NURSE AND DISCUSSED CHANGING PO MEDS TO IV. DR JURADO STATED NO NEED FOR THE SWITCH AND TO NOT ADMIN MORNING VITAMIN MEDICATIONS.
--- NOTE | 2021-03-30 10:00 | PC.NURSE ---
PATIENT ALTERED MENTAL STATUS, INABILITY TO ASSESS CIWA SCALE, PAIN SCALE. PATIENT CAN NOD YES OR NO TO CERTAIN QUESTIONS AND WITH DELAY. PATIENT HAS SOME HEALING PRESSURE ULCERS ON RIGHT HIP AND SMALL WOUND TO LEFT KNEE. PATIENT REPOSITIONED IN BED, RAIL PADDING IN PLACE, AND WHARTON CATHETER ASSESSED. PATIENT RESTING IN BED.
[2021-03-30 10:03] LABS: Lactic Acid level (Lactate) 2.5 mmol/L (0.5-2.2)
[2021-03-30] MEDS: sodium chloride 0.9% 1,000 ML 125 ML IV (11:00)
[2021-03-30] MEDS: dexamethasone 10 mg/mL INJ 6 MG IVP (11:00)
[2021-03-30] MEDS: LORazepam 2 mg/mL INJ 1 mL 0.5 MG IVP (11:54)
--- NOTE | 2021-03-30 12:22 | P.PN_ITS ---
Subjective Subjective: Interval history: Patient was seen this morning, continues to be confused, does awaken, is alert to his name, not to place, not to time, does not follow commands, remains tachycardic, normotensive, saturating in the high 80s on 4 L, Vitals/I&O/Wt Last Vital Signs Temp 95.9 F L 03/29/21 13:42 Pulse 117 H 03/30/21 10:54 Resp 29 H 03/30/21 10:54 BP 138/65 03/30/21 10:54 Pulse Ox 88 L 03/30/21 09:00 03/29/21 03/30/21 03/30/21 22:59 06:59 14:59 Intake Total 1060 / 2360 50 / 50 Balance 1060 / 2360 50 / 50 Weight last 48 hrs Weight 74.843 kg Weight 74.843 kg Physical Exam Narrative: EXAM NARRATIVE: Emaciated, temporal muscle wasting, diffuse muscle wasting, multiple bruises Const: EXAM LIMITATIONS: altered mental status GENERAL APPEARANCE: frail appearing ORIENTATION/CONSCIOUSNESS: Yes awake and Yes confused; not oriented to person, not oriented to place and not oriented to time Resp: COMMON NORMALS: normal respiratory effort, No retractions and No use of accessory muscles AUSCULTATION: wheezes Cardio: COMMON NORMALS: regular rhythm, S1 normal heart sound present and S2 normal heart sound present RATE: tachycardic RHYTHM: regular rhythm HEART SOUNDS: S1 normal heart sound present and S2 normal heart sound present GI: COMMON NORMALS: Normal to inspection, nondistended, normoactive bowel sounds present, Soft to palpation and non-tender PALPATION: Yes Soft to palpation Extremity: COMMON NORMALS: no pedal edema Neuro: COMMON NORMALS: moves all extremities SENSORIUM/ORIENTATION: No oriented to person, No oriented to place and No oriented to time OTHER: Does not follow neurologic testing Data : 03/30/21 05:55 03/30/21 05:55 Micro: Microbiology 03/29/21 15:15 Bacterial Antigens - Final Urine,Clean Catch 03/29/21 15:15 Legionella Urinary Antigen - Final Urine Catheterized 03/29/21 12:15 Blood Culture - Preliminary Blood SPECIMEN COLLECTED 03/29/21 12:15 Blood Culture - Preliminary Blood SPECIMEN COLLECTED A&P Assessment and plan (1) Altered mental status: Status: Acute Qualifiers: Altered mental status type: stupor Qualified Code(s): R40.1 - Stupor (2) Sepsis: Status: Acute Qualifiers: Acute respiratory failure type: with hypoxia Sepsis acute organ dysfunction status: with acute organ dysfunction Sepsis type: sepsis due to unspecified organism Severe sepsis acute organ dysfunction type: acute respiratory failure Severe sepsis shock status: without septic shock Qualified Code(s): A41.9 - Sepsis, unspecified organism; R65.20 - Severe sepsis without septic shock; J96.01 - Acute respiratory failure with hypoxia (3) Rhabdomyolysis: Status: Acute Qualifiers: Rhabdomyolysis type: non-traumatic Qualified Code(s): M62.82 - Rhabdomyolysis (4) Acute renal failure: Status: Acute Qualifiers: Acute renal failure type: unspecified Qualified Code(s): N17.9 - Acute kidney failure, unspecified (5) Pneumonia: Status: Acute Qualifiers: Laterality: right Lung location: upper lobe of lung Pneumonia type: due to unspecified organism Qualified Code(s): J18.9 - Pneumonia, unspecified o rganism (6) Lactic acidemia: Status: Acute (7) Decubitus ulcer of back, unstageable: Status: Acute (8) Fall in elderly patient: Status: Acute (9) Debilitated patient: Status: Acute (10) COVID-19: Status: Acute (11) Lacunar infarction: Status: Acute (12) Facial trauma: Status: Acute (13) Hypoxia: Status: Acute (14) Alcohol withdrawal: Status: Acute (15) Thrombocytopenia: Status: Acute Additional A&P Information Acute encephalopathy -Secondary to pneumonia, COVID-19, rhabdo, fall, rhabdo, dehydration COVID-19 pneumonia -Oxygen therapy -Budesonide, ipratropium -Vitamin C, vitamin D, zinc -Sputum cultures, blood cultures, urine bacterial antigens -Remdesivir day 1 of 5 -Decadron day 1 of 10 -Incentive spirometer, flutter valve Pneumonia -Vancomycin, Zosyn -Follow cultures -Monitor respiratory status Hyponatremia, serum sodium 151 -Likely secondary dehydration, beers Poto virgen -Continue IV fluids Lactic acidosis Dehydration, rhabdo, pneumonia -Sepsis -Secondary to pneumonia, COVID-19 -Antibiotics, IV fluids, midodrine Acute renal failure -Sec to sepsis, rhabdomyolysis -Monitor creatinine, urine output, continue IV fluids Alcoholism -With elevated INR 3.68 -Thrombocytopenia, 58,000 Rhabdomyolysis, as above Alcohol withdrawal -Moderate withdrawal -CIWA score Lacunar infarct, cerebellum, continue to monitor -Aspirin, statin Facial trauma -A few foci of air were noted within the RIGHT masseter space on the cervical spine CT. These foci of air are identified adjacent to the mandibular condyle. There is a remote zygomatic arch. No acute fractures are identified on this unenhanced study but there is significant motion artifact. If necessary when the patient becomes cooperative facial bone CT may be helpful. -CT facial bone Sacral decubitus ulcer, repositioning DNR/DNI SCDs for DVT prophylaxis, Lovenox relatively contraindicated given thrombocytopenia, alcoholism, elevated INR Protonix for GI prophylaxis Attestations Medical Necessity Statement*: Patient requires hospitalization for acute encephalopathy, COVID-19, pneumonia, hyponatremia, lactic acidosis sepsis, kidney failure, alcohol withdrawal rhabdomyolysis Coding Level of Care Code Acute Technical Rep for [facility] Fwd Diagnoses Altered mental status R40.1 Altered mental status type: stupor Sepsis A41.9; R65.20; J96.01 Acute respiratory failure type: with hypoxia Sepsis acute organ dysfunction status: with acute organ dysfunction Sepsis type: sepsis due to unspecified organism Severe sepsis acute organ dysfunction type: acute respiratory failure Severe sepsis shock status: without septic shock Rhabdomyolysis M62.82 Rhabdomyolysis type: non-traumatic Acute renal failure N17.9 Acute renal failure type: unspecified Pneumonia J18.9 Laterality: right Lung location: upper lobe of lung Pneumonia type: due to unspecified organism Lactic acidemia E87.2 Decubitus ulcer of back, unstageable L89.100 Fall in elderly patient R29.6 Debilitated patient R53.81 COVID-19 U07.1 Lacunar infarction I63.81 Facial trauma S09.93XA Hypoxia R09.02 Alcohol withdrawal F10.239 Thrombocytopenia D69.6
--- NOTE | 2021-03-30 13:04 | PC.NURSE ---
PATIENT ALTERED. ASSESSMENT COMPLETED TO BEST OF PATIENT'S ABILITY.
--- NOTE | 2021-03-30 14:08 | PC.NURSE ---
PATIENT VERY AGGITATED AND CONTINUES TO PULL ON INDWELLING CATHETER. PROVIDER NOTIFIED.
[2021-03-30] MEDS: haloperidol inj 5 mg/mL INJ 1 mL 3 MG IVP (14:30)
[2021-03-30 15:13] LABS: Blood Urea Nitrogen 68 mg/dL (8-23); Calcium 8.1 mg/dL (8.5-10.5); Carbon Dioxide 18 mmol/L (22-29); Chloride 115 mmol/L (98-107); Glucose 100 mg/dL (65-115); Osmolality Calculated 334 mOsm/kg (285-295); Sodium 152 mmol/L (136-145)
[2021-03-30 15:17] LABS: Anion Gap 22.2 (5-19); Potassium 3.2 mmol/L (3.5-5.1)
[2021-03-30] MEDS: LORazepam 2 mg/mL INJ 1 mL IM (17:00)
[2021-03-30] MEDS: remdesivir 100 MG in sodium chloride 0.9% (100 ml) 100 ML IV (17:59)
[2021-03-30] MEDS: dextrose 5%-sod chloride 0.9% 1,000 ML 75 ML IV (18:15)
--- NOTE | 2021-03-30 19:24 | PC.NURSE ---
Report to Poppy Shepard at this time.
--- NOTE | 2021-03-30 20:03 | PC.NURSE ---
Shift report received from Stefania BETTS. Patient in bed/resting. No s/s of pain or discomfort. O2 6L. Shaw patent draining clear yellow urine. Telemetry monitoring present. IV patent infusing D5NS @ 75mL/hr. Bed alarm for prevention of falls/safety. No needs noted at this time.
--- NOTE | 2021-03-30 21:40 | PC.NURSE ---
Patient non responsive to questions at this time / CIWA assessed based on patient's activity. Patient is restless and breathing is getting faster. PRN administered per protocol.
[2021-03-30] MEDS: LORazepam 2 mg/mL INJ 1 mL IVP (21:46)
[2021-03-30] MEDS: pantoprazole 40 mg SDV IVP (23:55)
[2021-03-31] VITALS (60 sets, daily range): BP systolic 69–161; BP diastolic 48–102; PULSE 64–86; RESP 13–32; TEMP 36.1–37.1; O2SAT 91–100; BMI 19.1
--- NOTE | 2021-03-31 01:24 | PC.NURSE ---
0001 Patient resting quietly at this time/ no s/s of discomfort or anxiety at this time.
[2021-03-31] MEDS: dextrose 5%-sod chloride 0.9% 1,000 ML 999 ML IV ×2 (01:40→04:47)
--- NOTE | 2021-03-31 02:25 | PC.NURSE ---
Sister Isis Mercado phone [phone] notified that patient will be transferred to ICU. Report called to Rayna RN/ICU. Waiting on room to be cleaned prior transfer.
[2021-03-31] MEDS: dextrose 5% 1,000 ML 75 ML IV (02:30)
--- NOTE | 2021-03-31 02:55 | PC.NURSE ---
Patient blood pressure 69/48 after one L bolus.
--- NOTE | 2021-03-31 03:00 | PC.NURSE ---
Transfer Note Patient transferred to ICU from [facility] via bed. Handoff received from ROXANE Mcwilliams. Patient oriented to environment and equipment. Covering service notified. Orders reviewed and will continue to monitor. Family and/or patient service representative notified. Patient unresponsive to verbal/painful stimuli upon arrival to unit. Patient blood pressure noted to be low, Levophed drip started per Dr. swartz.
--- NOTE | 2021-03-31 03:46 | PC.NURSE ---
0300 Patient transferred to ICU room 2 /transfer of care to Rayna BETTS.
--- NOTE | 2021-03-31 04:00 | PC.NURSE ---
Addendum entered by Rayna Max RN 03/31/21 07:05: Central and arterial line placement was emergent upon patient arrival to ICU Original Note: Central Line/Arterial Line Placement Dr. Benitez at bedside to place right femoral central line and right radial arterial line.
[2021-03-31] MEDS: piperacillin-tazobactam 3.375 GM in sodium chloride 0.9% (plus) 50 ML IV ×3 (04:46→19:44)
[2021-03-31] MEDS: vancomycin 1,000 MG in sodium chloride 0.9% 250 ML 250 MG IV (04:46)
[2021-03-31 05:16] LABS: Hematocrit 44.1 % (42.0-52.0); Hemoglobin 12.9 g/dL (11.7-16.6); Mean Corpuscular HGB Conc 29.3 g/dL (30.0-36.0); Mean Corpuscular Hemoglobin 31.3 pg (28.0-34.0); Mean Platelet Volume 12.9 fL (7.4-10.4); Platelet Count 63 10^3/cmm (130-400); Red Blood Count 4.12 10^6/uL (4.1-5.3); Red Cell Distribution Width 13.2 % (12.1-15.1); White Blood Count 8.6 10^3/uL (4.0-10.0)
[2021-03-31 05:34] LABS: Lactic Sepsis W/Reflex 1.4 mmol/L (0.5-2.2)
[2021-03-31 05:42] LABS: Slide Review Slide Review Perform
[2021-03-31 05:45] LABS: Absolute Neutrophil 7.9 10^3/cmm (1.4-6.5); Band Neutrophils Absolute 2.9 10^3/cmm (0.0-1.2); Eosinophils 0 %; Lymphocytes 5 %; Lymphocytes Absolute 0.6 10^3/cmm (1.2-3.4); Monocytes Absolute 0.1 10^3/cmm (0.1-0.6); NT Pro B Type Natriuretic Pept 5068 pg/mL (0-125); Platelet Estimate Decreased (Normal); Segmented Neutrophils 58 %; Total Cells Counted 100 (0-100)
[2021-03-31 05:58] LABS: INR 2.41 (0.8-1.2)
[2021-03-31 06:21] LABS: Alanine Aminotransferase 32 U/L (0-41); Albumin Level 2.4 g/dL (3.5-5.2); Alkaline Phosphatase 69 IU/L (40-130); Anion Gap 15.2 (5-19); Aspartate Amino Transferase 67 U/L (0-40); Blood Urea Nitrogen 69 mg/dL (8-23); Calcium 7.4 mg/dL (8.5-10.5); Carbon Dioxide 25 mmol/L (22-29); Chloride 121 mmol/L (98-107); Globulin 2.6 g/dL (1.3-4.6); Glucose 380 mg/dL (65-115); Magnesium 2.9 mg/dL (1.7-2.3); Osmolality Calculated 358 mOsm/kg (285-295); Potassium 5.2 mmol/L (3.5-5.1); Sodium 156 mmol/L (136-145); Total Bilirubin 0.3 mg/dL (0.15-1.2)
--- NOTE | 2021-03-31 06:23 | PC.NURSE ---
Shift Note Frequent safety and comfort rounds continue. Orders and/or nursing care completed as indicated. Patient monitored for response to intervention and treatment(s). Education provided includes hemodynamic monitoring and Levophed. Patient unable to comprehend teaching. Patient remains unresponsive to painful/verbal stimuli and is wearing 6L O2 via NC. Patient has wounds on the sacrum and upper back, both are covered with Optifoam dressings. No other wounds noted at this time. Zosyn, D5, and Levophed are infusing per protocol please see MAR for infusion rates. Shaw catheter drained 100 mls of urine overnight. Will continue to monitor.
[2021-03-31 06:28] LABS: Phosphorus 13.4 mg/dL (2.5-4.5)
--- NOTE | 2021-03-31 06:33 | PM.ACPR ---
Acute Procedures Central Line Placement^: Right Femoral: Time out performed: Yes Patient placed on monitor/pulse ox: Yes MD prep: mask, gown and gloves Central line prep: Chlorhexidine scrub Local anesthesia used: lidocaine 1% Ultrasound used for placement: Yes Central line lumen inserted: triple Post procedure: sutured in place, good blood return, all ports aspirated, flushed, capped and sterile dressing applied Patient tolerated procedure: well Complications: none
--- NOTE | 2021-03-31 06:34 | PM.ACPR ---
Acute Procedures Arterial Line: Time out performed: Yes Technique used: guide wire technique Post-Procedure: line sutured into place and dry sterile dressing placed Patient tolerated procedure: well and no complications Complications: none Site: right and radial
--- NOTE | 2021-03-31 06:35 | P.EN_ITS ---
Event Notes Attestations Time Spent in Patient Care: Greater than 35 minutes 70 year old male with a past medical history of alcoholism, who presents to [facility] due to altered mental status. He was being managed for, acute encephalopathy secondary to COVID-19 pneumonia, sepsis secondary to pneumonia, rhabdomyolysis , dehydration , KARMA, lactic acidosis, alcohol withdrawal. I was called to the floor nurse as the patient was severely hypotensive with systolic blood pressure in 70s Patient was given 1 L IV fluid bolus, without any significant improvement in systolic blood pressure It was decided to move the patient to ICU, for management of shock , after moving the patient to the ICU he was started on Levophed, central line rt femoral , and A-line was placed. Patient was continued on broad-spectrum antibiotics. His labs were reviewed and necessary changes were made. Critical Care Time 90 Mins The high probability of a clinically significant, sudden or life threatening deterioration of the patient's [] system(s) required my full and direct attention, intervention and personal management. The critical care time is as shown. This time is in addition to time spent performing any reported procedures but includes the following: [x] Data and vital sign review and interpretation [x] Patient assessment, examination and intervention [x] Documentation [x] Medication orders and management
--- NOTE | 2021-03-31 07:52 | XR_ITS ---
WS: [id number] Exam: XR chest 1V portable [id number] Date/Time of Exam: 03/31/2021 8:26 AM Reason For Exam: sob Comparison 03/29/2021. There is extensive new interstitial and airspace infiltrate throughout the left lung. Infiltrates in the right lung are unchanged. The heart is enlarged. Small left-sided pleural effusion has developed. Widening of the superior mediastinum. No pneumothorax is seen. Monitoring leads superimpose the ches t. XR/XR chest 1V portable [id number] IMPRESSION: 1. New extensive interstitial and airspace infiltrate throughout the left lung. 2. Infiltrate throughout the right lung essentially unchanged since prior study . 3. Interval cardiac enlargement. Large hiatal hernia. Chronic widening of the m ediastinum.
--- NOTE | 2021-03-31 08:00 | PC.NURSE ---
pt noted with agonal resp noted blood pressure dropped increased levophed at this time .. oral care had large dry mucus plug doctor called and orders noted .. up in bed monitor talked with family this am about status
[2021-03-31] MEDS: budesonide 0.5 mg/2 mL Neb INHALATION ×2 (08:27→20:08)
[2021-03-31] MEDS: ipratropium-albuterol 3 mL Neb INHALATION ×3 (08:27→20:08)
[2021-03-31 08:39] LABS: Arterial Blood Gas Hematocrit 42.2 % (42-52); Base Excess ABG -14.1 mmol/L (-2.0-2.0); Blood Gas Sample Type Arterial; HCO3 ABG 21.9 mmol/L (22-26)
[2021-03-31 08:40] LABS: Blood Gas Operator Identificat CAK; Oxygen Device OXY MASK
[2021-03-31 08:43] LABS: ABG PH Result 6.87 (7.35-7.45)
[2021-03-31] MEDS: hydrocortisone 100 mg/2 mL SDV IVP (08:46)
[2021-03-31] MEDS: norepinephrine 8 MG in dextrose 5 % 500 ML 60.96 MG IV (09:07)
[2021-03-31] MEDS: sodium bicarbonate 8.4% 1 mEq/mL 50mL Syr 50 MEQ IVP (09:56)
[2021-03-31] MEDS: calcium gluconate 0.9% NaCL 1 GM/50 ML PREMIX IV ×2 (10:39→11:59)
[2021-03-31] MEDS: FUROsemide 10 mg/mL SDV 4mL 40 MG IVP (11:07)
[2021-03-31 11:41] LABS: Alveolar-Arterial Oxygen Gradi 17.3 mmHg (5-10); Arterial Blood Gas Hematocrit 42.3 % (42-52); Base Excess ABG -8.7 mmol/L (-2.0-2.0); Blood Gas Operator Identificat CAK; Blood Gas Sample Site ARTLINE; Blood Gas Sample Type Arterial; Carboxyhemoglobin 0.2 %THgb (0.4-20.1); HCO3 ABG 21.2 mmol/L (22-26); HGB O2 Sat 94.2 % (95-100); Ionized Calcium Level - ABG 1.2 mmol/L (1.1-1.4); Methemoglobin 0.9 % (0.4-1.5); Oxygen Device BIPAP; Oxygen Saturation ABG 95.3; PO2 ABG 80.8 mmHg (80.0-100.0); Potassium Level - ABG 3.7 mmol/L (3.5-5.0); Total Hemoglobin 13.8 g/dL (14-18)
[2021-03-31 11:42] LABS: ABG PCO2 62.9 mmHg (35-45); ABG PH Result 7.14 (7.35-7.45)
--- NOTE | 2021-03-31 12:00 | PC.NURSE ---
abg results noted and on bipap at this time weaning levophed gtt at this time
[2021-03-31 12:32] LABS: Anion Gap 17.6 (5-19); Blood Urea Nitrogen 72 mg/dL (8-23); Calcium 7.4 mg/dL (8.5-10.5); Carbon Dioxide 22 mmol/L (22-29); Chloride 116 mmol/L (98-107); Glucose 278 mg/dL (65-115); Osmolality Calculated 345 mOsm/kg (285-295); Potassium 3.6 mmol/L (3.5-5.1); Sodium 152 mmol/L (136-145)
--- NOTE | 2021-03-31 15:21 | PC.SLP ---
Patient not seen per nursing request.
[2021-03-31] MEDS: midodrine 5 mg TABLET 10 MG PO (16:07)
--- NOTE | 2021-03-31 16:29 | P.PN_ITS ---
Subjective Subjective: Interval history: Overnight patient had persistent hypotensive episodes, hyponatremia, increased confusion, decreased responsiveness that required movement down to the ICU, had a femoral line in place, art line placed, likely septic shock from pneumonia, COVID-19 During my examination this morning, he is not alert oriented, does awaken, but falls back asleep, ABG shows hypercarbic respiratory failure, PCO2 over 127, pH 6.9, was placed on BiPAP, repeat ABG shows pH 7.14, PCO2 62.9, PO2 80, bicarb 21.2 continues to not be responsive does awaken, is on decreasing doses of Levophed, currently patient is critically ill, prognosis is guarded I had an extensive discussion with patient's family members including patient's next of kin Dominik Sheriff phone #[phone], Raymon Sheriff [phone], patient's sister Isis Mercado. I discussed patient's continued acute encephalopathy, multiorgan failure, acute renal failure, rhabdo, COVID-19, pneumonia, pneumonia, sacral ulcers, acute respiratory failure, septic shock -All parties confirmed with me that it was patient's wish to not be resuscitated, DNR/DNI -Patient's sister tells me that patient did not even want to come to the hospital, he did not want to see doctors, it was his wish to at home, but she did not want her brother to that is why she called EMS -Above all all parties do not want him to suffer they want him to be comfortable -They want us to continue medical interventions, ago avoid aggressive int erventions if possible -They want to see how he can do with medical interventions at this time, incl uding BiPAP, Levophed, medications -However if he continues to deteriorate, if he starts to suffer or if the likelihood of him having a meaningful recovery is unlikely they are agreeable to pursue full comfort care -All parties voiced understanding, all questions answered, agreed to proceed -Patient's son Dominik Sheriff lives in [place] he is coming down to see his father, Raymon is locally he will stop by to see his father Vitals/I&O/Wt Last Vital Signs Temp 97 F L 03/31/21 08:00 Pulse 68 03/31/21 16:00 Resp 22 H 03/31/21 16:00 BP 135/85 03/31/21 16:00 Pulse Ox 96 03/31/21 16:00 03/31/21 03/31/21 03/31/21 06:59 14:59 22:59 Intake Total 3275.1059 / 4585.1059 829.227 / 658.413 3819 / 1829.227 Output Total 350 / 350 350 / 350 Balance 2925.1059 / 4235.1059 479.227 / 215.287 2409 / 1479.227 Weight last 48 hrs Weight 57.243 kg Weight 74.843 kg Physical Exam Const: EXAM LIMITATIONS: altered mental status GENERAL APPEARANCE: ill appearing and frail appearing NUTRITIONAL APPEARANCE: cachectic ORIENTATION/CONSCIOUSNESS: not awake, not oriented to person and not oriented to place Resp: EFFORT & INSPECTION: Yes tachypneic, Yes respiratory distress (MILD) and Yes uses accessory muscles AUSCULTATION: crackles Cardio: COMMON NORMALS: regular rate, regular rhythm, S1 normal heart sound present and S2 normal heart sound present RATE: regular rate RHYTHM: regular rhythm HEART SOUNDS: S1 normal heart sound present and S2 normal heart sound present GI: COMMON NORMALS: Normal to inspection, nondistended, normoactive bowel sounds present, Soft to palpation and non-tender PALPATION: Yes Soft to palpation Extremity: COMMON NORMALS: no pedal edema Neuro: SENSORIUM/ORIENTATION: No oriented to person and No oriented to place Data : 03/31/21 05:06 03/31/21 12:06 Micro: Microbiology 03/29/21 15:25 Urine Culture - Preliminary Urine Catheterized 03/29/21 17:25 MRSA Culture - Final Nose 03/29/21 12:15 Blood Culture - Preliminary Blood NEGATIVE TO DATE 03/29/21 12:15 Blood Culture - Preliminary Blood NEGATIVE TO DATE A&P Assessment and plan (1) Altered mental status: Status: Acute Qualifiers: Altered mental status type: stupor Qualified Code(s): R40.1 - Stupor (2) Sepsis: Status: Acute Qualifiers: Acute respiratory failure type: with hypoxia Sepsis acute organ dysfunction status: with acute organ dysfunction Sepsis type: sepsis due to unspecified organism Severe sepsis acute organ dysfunction type: acute respira tory failure Severe sepsis shock status: without septic shock Qualified Code(s): A41.9 - Sepsis, unspecified organism; R65.20 - Severe sepsis without septic shock; J96.01 - Acute respiratory failure with hypoxia (3) Rhabdomyolysis: Status: Acute Qualifiers: Rhabdomyolysis type: non-traumatic Qualified Code(s): M62.82 - Rhabdomyolysis (4) Acute renal failure: Status: Acute Qualifiers: Acute renal failure type: unspecified Qualified Code(s): N17.9 - Acute kidney failure, unspecified (5) Pneumonia: Status: Acute Qualifiers: Laterality: right Lung location: upper lobe of lung Pneumonia type: due to unspecified organism Qualified Code(s): J18.9 - Pneumonia, unspecified organism (6) Lactic acidemia: Status: Acute (7) Decubitus ulcer of back, unstageable: Status: Acute (8) Fall in elderly patient: Status: Acute (9) Debilitated patient: Status: Acute (10) COVID-19: Status: Acute (11) Lacunar infarction: Status: Acute (12) Facial trauma: Status: Acute (13) Hypoxia: Status: Acute (14) Alcohol withdrawal: Status: Acute (15) Thrombocytopenia: Status: Acute (16) Septic shock: Status: Acute Additional A&P Information Acute encephalopathy -Secondary to pneumonia, COVID-19, rhabdo, fall, rhabdo, dehydration -Status is critical, prognosis guarded Acute hypercarbic respiratory failure -Continue BiPAP Septic shock -From COVID-19 pneumonia, pneumonia -Continue Levophed -Femoral line in place -Art line in place COVID-19 pneumonia -Oxygen therapy -Budesonide, ipratropium -Vitamin C, vitamin D, zinc -Sputum cultures, blood cultures, urine bacterial antigens -Remdesivir day 2 of 5 -Decadron day 2 of 10 -As currently there is concerns for pneumonia, does not qualify for Actemra -Incentive spirometer, flutter valve Pneumonia -Vancomycin, Zosyn -Follow cultures -Monitor respiratory status Hyponatremia, serum sodium 152 -Likely secondary dehydration, beers Poto virgen -Continue D5 water -Serial BMPs every 4 hours Lactic acidosis Dehydration, rhabdo, pneumonia -Sepsis -Secondary to pneumonia, COVID-19 -Antibiotics, IV fluids, midodrine Acute renal failure -Sec to sepsis, rhabdomyolysis -Monitor creatinine, urine output, continue IV fluids Alcoholism -With elevated INR 3.68 -Thrombocytopenia, 58,000 Rhabdomyolysis, as above Alcohol withdrawal -Moderate withdrawal -CIWA score Lacunar infarct, cerebellum, continue to monitor -Aspirin, statin Facial trauma -A few foci of air were noted within the RIGHT masseter space on the cervical spine CT. These foci of air are identified adjacent to the mandibular condyle. There is a remote zygomatic arch. No acute fractures are identified on this unenhanced study but there is significant motion artifact. If necessary when the patient becomes cooperative facial bone CT may be helpful. -CT facial bone Sacral decubitus ulcer, repositioning DNR/DNI If patient starts to suffer, starts to clinically deteriorate, family is okay with proceeding with comfort care Dominiktata Sheriff [phone] Raymon Sheriff [phone] SCDs for DVT prophylaxis, Lovenox relatively contraindicated given thrombocytopenia, alcoholism, elevated INR Protonix for GI prophylaxis Attestations Medical Necessity Statement*: Patient requires hospitalization for COVID-19 pneumonia, acute hypoxic respiratory failure, septic shock, pneumonia, hyponatremia, lactic acidosis, rhabdomyolysis, alcoholism, critical care time spent over 55 minutes Coding Level of Care Code 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 [facility] Fwd Diagnoses Altered mental status R40.1 Altered mental status type: stupor Sepsis A41.9; R65.20; J96.01 Acute respiratory failure type: with hypoxia Sepsis acute organ dysfunction status: with acute organ dysfunction Sepsis type: sepsis due to unspecified organism Severe sepsis acute organ dysfunction type: acute respiratory failure Severe sepsis shock status: without septic shock Rhabdomyolysis M62.82 Rhabdomyolysis type: non-traumatic Acute renal failure N17.9 Acute renal failure type: unspecified Pneumonia J18.9 Laterality: right Lung location: upper lobe of lung Pneumonia type: due to unspecified organism Lactic acidemia E87.2 Decubitus ulcer of back, unstageable L89.100 Fall in elderly patient R29.6 Debilitated patient R53.81 COVID-19 U07.1 Lacunar infarction I63.81 Facial trauma S09.93XA Hypoxia R09.02 Alcohol withdrawal F10.239 Thrombocytopenia D69.6 Septic shock A41.9; R65.21 Sepsis Event Note Evaluation Current stage of sepsis: severe sepsis Initial hypotension due to sepsis/infection: SBP < 90 mmHg Possible source: pulmonary and skin/soft tissue Focused Exam Vital Signs Temp Pulse Resp BP Pulse Ox 03/31/21 16:00 68 22 H 135/85 96 03/31/21 15:30 69 20 H 131/83 96 03/31/21 15:00 71 24 H 135/80 96 03/31/21 14:37 77 03/31/21 14:34 72 20 H 94 03/31/21 14:30 72 30 H 161/102 95 03/31/21 14:22 78 94 03/31/21 14:00 66 26 H 140/93 97 03/31/21 13:30 66 21 H 137/94 97 03/31/21 13:00 66 27 H 138/86 97 03/31/21 12:38 76 95 03/31/21 12:30 67 21 H 142/93 96 03/31/21 12:00 70 23 H 134/87 96 03/31/21 11:30 69 21 H 133/89 96 03/31/21 11:00 72 20 H 115/99 95 03/31/21 10:30 72 20 H 129/87 94 03/31/21 10:00 76 20 H 131/81 94 03/31/21 09:34 78 95 03/31/21 09:30 75 20 H 132/92 95 03/31/21 09:00 75 24 H 106/66 92 03/31/21 08:34 77 03/31/21 08:32 78 14 100 03/31/21 08:30 75 23 H 135/92 100 03/31/21 08:00 97 F L 75 20 H 126/86 99 03/31/21 07:30 76 20 H 123/88 97 03/31/21 07:00 73 20 H 89/63 03/31/21 06:30 77 24 H 103/73 03/31/21 06:00 78 13 115/81 97 03/31/21 05:30 79 24 H 107/72 96 03/31/21 05:00 78 26 H 104/73 95 Respiratory exam: Present accessory muscle use and respiratory distress Capillary refill: < 3 Seconds Peripheral pulse strength: 1+ Faint Peripheral pulse location: Pedal Skin exam: flushed Date exam was performed: 03/31/21 Time exam was performed: 16:38 Problem List (1) Altered mental status: Status: Acute (2) Sepsis: Status: Acute (3) Rhabdomyolysis: Status: Acute (4) Acute renal failure: Status: Acute (5) Pneumonia: Status: Acute (6) Lactic acidemia: Status: Acute (7) Decubitus ulcer of back, unstageable: Status: Acute (8) Fall in elderly patient: Status: Acute (9) Debilitated patient: Status: Acute (10) COVID-19: Status: Acute (11) Lacunar infarction: Status: Acute (12) Facial trauma: Status: Acute (13) Hypoxia: Status: Acute (14) Alcohol withdrawal: Status: Acute (15) Thrombocytopenia: Status: Acute
[2021-03-31 16:42] LABS: Anion Gap 17.6 (5-19); Blood Urea Nitrogen 73 mg/dL (8-23); Calcium 7.7 mg/dL (8.5-10.5); Carbon Dioxide 18 mmol/L (22-29); Chloride 122 mmol/L (98-107); Glucose 162 mg/dL (65-115); Osmolality Calculated 345 mOsm/kg (285-295); Sodium 155 mmol/L (136-145)
[2021-03-31 17:00] LABS: Potassium 2.6 mmol/L (3.5-5.1)
[2021-03-31] MEDS: remdesivir 100 MG in sodium chloride 0.9% (100 ml) 100 ML IV (17:40)
[2021-03-31] MEDS: dextrose 5% 1,000 ML 125 ML IV (18:03)
[2021-03-31] MEDS: lidocaine 1% 5 ML in potassium chloride premix 100 ML 25 ML IV ×2 (18:15→22:37)
[2021-03-31 20:48] LABS: Anion Gap 17.1 (5-19); Blood Urea Nitrogen 79 mg/dL (8-23); Calcium 7.4 mg/dL (8.5-10.5); Carbon Dioxide 19 mmol/L (22-29); Chloride 122 mmol/L (98-107); Glucose 129 mg/dL (65-115); Osmolality Calculated 345 mOsm/kg (285-295); Potassium 3.1 mmol/L (3.5-5.1); Sodium 155 mmol/L (136-145)
--- NOTE | 2021-03-31 21:40 | PC.NURSE ---
Family updated via phone call.
--- NOTE | 2021-03-31 22:20 | PC.NURSE ---
Addendum entered by Shandra Solo RN 03/31/21 22:26: Arterial line leveled and zeroed at this time. Original Note: During this evenings 1950 assessment, it was noted that pt has a large cataract on right eye, which makes assessing pupil difficult. Pt does move all extremities without purpose. Pt's feet very cool to the touch and appear mottled. Pt turned to side with pillow under right hip.
[2021-04-01] VITALS (61 sets, daily range): BP systolic 100–146; BP diastolic 57–98; PULSE 51–96; RESP 21–47; TEMP 36.3–37.9; O2SAT 86–97; BMI 21.2
[2021-04-01] MEDS: pantoprazole 40 mg SDV IVP ×2 (00:03→23:41)
--- NOTE | 2021-04-01 00:29 | PC.NURSE ---
Pt resting quietly in bed, until nursing accessed IVs and turned/repositioned. Pt then became restless, and attempts to pull away. Otherwise, assessment remains unchanged.
[2021-04-01] MEDS: dextrose 5% 1,000 ML 125 ML IV (01:06)
--- NOTE | 2021-04-01 01:09 | PC.NURSE ---
Dr. Benitze at bedside at 0045, aware that patient has only had 50 mls of urine out since 1930. No new orders at this time.
--- NOTE | 2021-04-01 03:04 | PC.NURSE ---
Family given update via phone.
[2021-04-01] MEDS: piperacillin-tazobactam 3.375 GM in sodium chloride 0.9% (plus) 50 ML IV ×3 (03:22→19:59)
[2021-04-01 04:12] LABS: Basophils % 0.7 %; Hematocrit 32.7 % (42.0-52.0); Hemoglobin 10.1 g/dL (11.7-16.6); Lymphocytes # 0.2 10^3/uL (0.8-4.8); Lymphocytes % 4.1 %; Mean Corpuscular HGB Conc 30.9 g/dL (30.0-36.0); Mean Corpuscular Hemoglobin 30.6 pg (28.0-34.0); Mean Corpuscular Volume 99.1 fl (80-94); Mean Platelet Volume 14.4 fL (7.4-10.4); Monocytes # 0.2 10^3/uL (0.2-0.9); Monocytes % 3.6 %; Neutrophils # 4.01 10^3/uL (1.8-7.7); Neutrophils % 90.5 %; Nucleated Red Blood Cells # 0.1 /100WBC; Nucleated Red Blood Cells % 1.1 %; Platelet Count 32 10^3/cmm (130-400); Red Cell Distribution Width 13.3 % (12.1-15.1); White Blood Count 4.4 10^3/uL (4.0-10.0)
[2021-04-01 04:28] LABS: INR 3.43 (0.8-1.2)
[2021-04-01 04:33] LABS: Lactate (Lactic Acid level) 2.8 mmol/L (0.5-2.2); Vancomycin Trough 23.3 ug/mL (10-15)
[2021-04-01 04:51] LABS: Alanine Aminotransferase 24 U/L (0-41); Albumin Level 3.1 g/dL (3.5-5.2); Alkaline Phosphatase 46 IU/L (40-130); Anion Gap 23.9 (5-19); Aspartate Amino Transferase 55 U/L (0-40); C Reactive Protein 108.5 mg/L (0.0-4.9); Calcium 8.1 mg/dL (8.5-10.5); Carbon Dioxide 16 mmol/L (22-29); Chloride 115 mmol/L (98-107); Globulin 2.3 g/dL (1.3-4.6); Glucose 229 mg/dL (65-115); Magnesium 2.2 mg/dL (1.7-2.3); Osmolality Calculated 344 mOsm/kg (285-295); Phosphorus 3.3 mg/dL (2.5-4.5); Potassium 3.9 mmol/L (3.5-5.1); Sodium 151 mmol/L (136-145); Total Bilirubin 0.8 mg/dL (0.15-1.2); Total Protein 5.4 g/dL (6.6-8.7)
[2021-04-01 04:53] LABS: Blood Urea Nitrogen 83 mg/dL (8-23); Creatine Phosphokinase 415 U/L (39-308)
[2021-04-01 04:58] LABS: NT Pro B Type Natriuretic Pept 31257 pg/mL (0-125)
[2021-04-01 05:02] LABS: ABG PCO2 26.8 mmHg (35-45); Arterial Blood Gas Hematocrit 36.2 % (42-52); Blood Gas Sample Type Arterial; HCO3 ABG 16.5 mmol/L (22-26); PO2 ABG 69.7 mmHg (80.0-100.0)
--- NOTE | 2021-04-01 05:02 | PC.PHAR ---
Vancomycin trough on dosage of 1000mg IVPB every 24 hours is 2.3. Hold for 2 doses, then decrease to 500mg IVPB every 24 hours with another trough before the third 500mg dose.
[2021-04-01 05:03] LABS: Blood Gas Operator Identificat JB; Blood Gas Sample Site ARTLINE; Oxygen Device BIPAP
[2021-04-01] MEDS: lidocaine 1% 5 ML in potassium chloride premix 100 ML 25 ML IV (05:47)
[2021-04-01] MEDS: FUROsemide 10 mg/mL SDV 10mL 60 MG IVP (05:47)
--- NOTE | 2021-04-01 06:04 | PC.NURSE ---
Pt appears to be attempting to grab or pinch this nurse when care given. Pt will not open his eyes. Pt seems to be much stronger this AM.
--- NOTE | 2021-04-01 07:00 | XRR_ITS ---
PROCEDURE INFORMATION: Exam: XR Chest Exam date and time: 04/01/2021 7:00 AM Age: 70 years old Clinical indication: Shortness of breath; Patient HX: F/u covid pneumonia. Intubated. ; Additional info: SOB TECHNIQUE: Imaging protocol: XR of the chest. Views: 1 view. COMPARISON: CR XR chest 1V portable [id number] 03/31/2021 8:32 AM FINDINGS: Lungs: Bilateral patchy interstitial opacities are again noted, most prominently seen within the right upper lobe and left perihilar regions compatible with an interstitial pneumonia. There are worsening infiltrates seen within the right lower hemithorax today. Pleural spaces: Unremarkable. No pleural effusion. No pneumothorax. Heart/Mediastinum: Unremarkable. No cardiomegaly. Bones/joints: Unremarkable. XR/XR chest 1V portable [id number] IMPRESSION: 1. Patchy bilateral interstitial pneumonia with worsening infiltrates present the right lower hemithorax compared with yesterday's examination.
--- NOTE | 2021-04-01 07:22 | P.PN_ITS ---
Subjective Subjective: Interval history: Nahum arvizu some when I stimulate him. No meaningful response. Medications: Reviewed: Yes Vitals/I&O/Wt Last Vital Signs Temp 98.9 F 04/01/21 06:00 Pulse 81 04/01/21 07:08 Resp 26 H 04/01/21 06:00 BP 139/89 04/01/21 06:00 Pulse Ox 94 04/01/21 06:16 03/31/21 04/01/21 04/01/21 22:59 06:59 14:59 Intake Total 1268.5 / 2097.727 1236.25 / 3333.977 Output Total 350 / 700 Balance 918.5 / 4041.906 0168.25 / 2633.977 Weight last 48 hrs Weight 57.243 kg Physical Exam Narrative: EXAM NARRATIVE: General exam is a white male, on BiPAP with significant tachypnea with minimal responsiveness HEENT: Atraumatic normocephalic Oropharynx not examined secondary BiPAP Neck is supple no lymphadenopathy or thyromegaly Cardiovascular regular rate and rhythm, sounds distant Lungs coarse breath sounds with a few crackles bilaterally Abdomen is soft. No obvious mass exam demonstrates Shaw. Only 700 cc out in the last 24 hours Extremities no cyanosis clubbing or edema, a few scattered abrasions. Data : 04/01/21 03:40 04/01/21 03:40 Micro: Microbiology 03/29/21 15:25 Urine Culture - Preliminary Urine Catheterized Other data: Chest x-ray with bilateral interstitial infiltrates, worse in some areas than others with evidence of some fluid overload A&P Assessment and plan (1) Altered mental status: Multifactorial. Per nurse he seems somewhat more responsive today. Status: Acute Qualifiers: Altered mental status type: stupor Qualified Code(s): R40.1 - Stupor (2) Sepsis: Now off norepinephrine. Continue IV Zosyn and vancomycin. Cultures negative to date. Status: Acute Qualifiers: Acute respiratory failure type: with hypoxia Sepsis acute organ dysfunction status: with acute organ dysfunction Sepsis type: sepsis due to unspecified organism Severe sepsis acute organ dysfunction type: acute respiratory failure Severe sepsis shock status: without septic shock Qualified Code(s): A41.9 - Sepsis, unspecified organism; R65.20 - Severe sepsis without septic shock; J96.01 - Acute respiratory failure with hypoxia (3) Rhabdomyolysis: CK has drifted down to 415. No reason to recheck. Status: Acute Qualifiers: Rhabdomyolysis type: non-traumatic Qualified Code(s): M62.82 - R habdomyolysis (4) Acute renal failure: Slowly progressive. Secondary to his underlying suspected liver disease from alcohol cannot rule out hepatorenal syndrome. Agree with continuation of midodrine, albumin Currently he is off norepinephrine No obstruction on CT done on admission Status: Acute Qualifiers: Acute renal failure type: unspecified Qualified Code(s): N17.9 - Acute kidney failure, unspecified (5) Pneumonia: Continue Zosyn, vancomycin, pulmonary toilet. Await sputum culture. Status: Acute Qualifiers: Laterality: right Lung location: upper lobe of lung Pneumonia type: due to unspecified organism Qualified Code(s): J18.9 - Pneumonia, unspecified organism (6) Lactic acidemia: Status: Acute (7) Decubitus ulcer of back, unstageable: Status: Acute (8) Fall in elderly patient: Status: Acute (9) Debilitated patient: Status: Acute (10) COVID-19: Continue dexamethasone Continue remdesivir Currently on BiPAP, wean as tolerated Actemra and baricitinib not given secondary to high likelihood of bacterial infection with elevated procalcitonin Status: Acute (11) Lacunar infarction: Status: Acute (12) Facial trauma: Status: Acute (13) Hypoxia: Status: Acute (14) Alcohol withdrawal: [facility] protocol Status: Acute (15) Thrombocytopenia: Worsening, associated with elevated INR. Some of this is due to his underlying liver disease, and some compounded by sepsis, COVID. Status: Acute (16) Septic shock: Status: Acute Additional A&P Information Hypernatremia. Now appears to have some fluid overload, with increasing BNP. Reduce D5W to 50 cc an hour. Check echocardiogram. History of facial trauma. Some air right masseter. Consider CT facial bones if significant improvement. Allow natural Has femoral line SCDs for DVT prophylaxis. Anticoagulation contraindicated secondary to worsening platelets and elevated INR If patient starts to suffer, starts to clinically deteriorate, family is okay with proceeding with comfort care Dominik Sheriff [phone] Raymon Sheriff [phone] Attestations Medical Necessity Statement*: Needs continued hospitalization secondary to severe sepsis, COVID-19 with respiratory failure, hypoxic Critical Care Time: Critical Care Time (min): 33 Other Attestations: The high probability of a clinically significant, sudden or life threatening deterioration of the patient's [pulmonary, cardiac, infectious disease, renal, liver] system(s) required my full and direct attention, intervention and personal management. The critical care time is as shown. 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 [facility] Fwd Diagnoses Altered mental status R40.1 Altered mental status type: stupor Sepsis A41.9; R65.20; J96.01 Acute respiratory failure type: with hypoxia Sepsis acute organ dysfunction status: with acute organ dysfunction Sepsis type: sepsis due to unspecified organism Severe sepsis acute organ dysfunction type: acute respiratory failure Severe sepsis shock status: without septic shock Rhabdomyolysis M62.82 Rhabdomyolysis type: non-traumatic Acute renal failure N17.9 Acute renal failure type: unspecified Pneumonia J18.9 Laterality: right Lung location: upper lobe of lung Pneumonia type: due to unspecified organism Lactic acidemia E87.2 Decubitus ulcer of back, unstageable L89.100 Fall in elderly patient R29.6 Debilitated patient R53.81 COVID-19 U07.1 Lacunar infarction I63.81 Facial trauma S09.93XA Hypoxia R09.02 Alcohol withdrawal F10.239 Thrombocytopenia D69.6 Septic shock A41.9; R65.21
--- NOTE | 2021-04-01 07:30 | USCV_ITS ---
Nahum Sheriff Age: 70 Gender: M : 1950 Exam Date: 04/01/2021 14:27 Ordering Phys: Servando Aguayo MD Technologist: Ruby Chappell Exam Location: [facility] [place] Indication: Heart failure BP: 139 / 89 HR: 54 Rhythm: Sinus bradycardia Technical Quality: Suboptimal MEASUREMENTS (Male / Female) Normal Values 2D ECHO LV Diastolic Diameter PLAX 5.8 cm 4.2 - 5.9 / 3.9 - 5.3 cm LV Systolic Diameter PLAX 4.1 cm IVS Diastolic Thickness 0.9 cm 0.6 - 1.0 / 0.6 - 0.9 cm IVS Systolic Thickness 1.2 cm LVPW Diastolic Thickness 1.1 cm 0.6 - 1.0 / 0.6 - 0.9 cm LVPW Systolic Thickness 1.5 cm RV Chamber Size 3.1 cm LVOT Diameter 2.1 cm LV Ejection Fraction 2D Teich 55.8 % LV Ejection Fraction MOD 2C 37.3 % LV Ejection Fraction 2C AL 37.8 % LA Diameter 4.5 cm LA Width 4.5 cm LA Height 5.9 cm RA Width 2.9 cm RA Height 4.9 cm Aorta at Sinotubular Diameter 3.0 cm M-MODE Aortic Annulus Diameter 3.6 cm LA Ao Ratio MM 1.4 MV E Point Septal Separation 2.4 cm DOPPLER AV Peak Velocity 110.3 cm/s LVOT Peak Velocity 64.0 cm/s AV Area Cont Eq vti 2.0 cm squared AV Area Cont Eq pk 2.1 cm squared MV Area PHT 4.3 cm squared Mitral E to A Ratio 1.6 MV E' Velocity 40.0 cm/s Mitral E to MV E' Ratio 14.4 Mitral E to LV E' Lateral Ratio 15.0 Mitral E to LV E' Septal Ratio 13.9 TR Peak Velocity 189.0 cm/s TR Peak Gradient 14.3 mmHg TV Peak E Velocity 26.0 cm/s Right Atrial Pressure 15.0 mmHg Pulmonary Artery Systolic Pressu 29.3 mmHg FINDINGS Left Ventricle Mildly increased left ventricular cavity size. Diffuse hypokinesia of the left ventricular with an ejection fraction of 38%. Right Ventricle The right ventricle is normal in size and function. Right Atrium Normal right atrial size. Left Atrium The left atrium is normal in size. Mitral Valve Mild prolapse of the anterior mitral valve leaflet. Moderate eccentric mitral regurgitation.thickened mitral valve. Aortic Valve Mild aortic valve regurgitation. Thickened aortic valve. Tricuspid Valve Trace tricuspid valve regurgitation. Estimated pulmonary artery peak systolic pressure of 29 mmHg Pulmonic Valve Pulmonic valve not well visualized. Pericardium Normal pericardium without effusion. Aorta Normal ascending aorta dimension. CONCLUSIONS Mildly increased left ventricular cavity size. Diffuse hypokinesia of the left ventricular with an ejection fraction of 38%. Mild prolapse of the anterior mitral valve leaflet. Moderate eccentric mitral regurgitation. Thickened mitral valve. Mild aortic valve regurgitation. Thickened aortic valve. Trace tricuspid valve regurgitation. Estimated pulmonary artery peak systolic pressure of 29 mmHg There is no pericardial effusion. There are no intracardiac masses. No previous study is available for comparison. Dr Zenaida Briones MD [facility] (Electronically Signed) Final Date: 02 April 2021 10:20 S
[2021-04-01] MEDS: lidocaine 1% 5 ML in potassium chloride premix 100 ML 50 ML IV (07:40)
[2021-04-01] MEDS: sodium bicarbonate 8.4% 1 mEq/mL 50mL Syr 25 MEQ IVP ×2 (07:41→20:45)
[2021-04-01] MEDS: dexamethasone 10 mg/mL INJ 6 MG IVP (07:41)
[2021-04-01] MEDS: budesonide 0.5 mg/2 mL Neb INHALATION ×2 (08:02→20:30)
[2021-04-01] MEDS: ipratropium-albuterol 3 mL Neb INHALATION ×3 (08:02→20:30)
[2021-04-01] MEDS: dexmedeTOMIDine 0.9 % NaCL 400 MCG/100 ML PREMIX IV ×2 (08:17→23:47)
--- NOTE | 2021-04-01 09:05 | PC.NURSE ---
recieved in bed restless moving all extremities by self, fidgeting pulling at wires and respriratory rate rapid with decrease in urine output noted Doctor aware orders
--- NOTE | 2021-04-01 09:10 | PC.SOCIAL ---
IMM Not Updated Pg. 2 of IMM not updated at this time. Patient not anticipated to discharge within 48hours, he is currently on bipap in ICU.
--- NOTE | 2021-04-01 09:46 | PC.OT ---
Per nursing, OT evaluation on hold at this time. OT will check on patient's status tomorrow.
--- NOTE | 2021-04-01 10:21 | PC.SLP ---
Patient continues on BiPap and is unable to participate in swallowing assessment.
[2021-04-01] MEDS: dextrose 5% 1,000 ML 30 ML IV (11:30)
[2021-04-01 13:37] LABS: Anion Gap 21.7 (5-19); Carbon Dioxide 16 mmol/L (22-29); Chloride 118 mmol/L (98-107); Glucose 183 mg/dL (65-115); Osmolality Calculated 344 mOsm/kg (285-295); Potassium 4.7 mmol/L (3.5-5.1); Sodium 151 mmol/L (136-145)
[2021-04-01 13:43] LABS: Blood Urea Nitrogen 89 mg/dL (8-23)
[2021-04-01] MEDS: remdesivir 100 MG in sodium chloride 0.9% (100 ml) 100 ML IV (18:05)
--- NOTE | 2021-04-01 19:17 | NUR.SHIFT ---
Shift Note Frequent safety and comfort rounds continue. Orders and/or nursing care completed as indicated. Patient monitored for response to intervention and treatment(s). Education provided includes[]. Patient and/or territory service representative [ResponseToTeaching]. Will continue to monitor. informed family overall status and possible comfort care
[2021-04-01] MEDS: octreotide 500 MCG in sodium chloride 0.9% (100 ml) 100 ML 10.1 MCG IV (20:26)
[2021-04-01] MEDS: FUROsemide 10 mg/mL SDV 10mL 80 MG IVP (20:49)
[2021-04-02] VITALS (44 sets, daily range): BP systolic 119–151; BP diastolic 77–113; PULSE 55–98; RESP 19–43; TEMP 36.1–36.2; O2SAT 85–99; BMI 20.7
[2021-04-02] MEDS: bumetanide 25 MG in empty flexible container 1 EACH 4 MG IV (01:15)
[2021-04-02] MEDS: ipratropium-albuterol 3 mL Neb INHALATION ×4 (02:26→19:46)
[2021-04-02] MEDS: piperacillin-tazobactam 3.375 GM in sodium chloride 0.9% (plus) 50 ML IV ×2 (02:49→14:32)
[2021-04-02] MEDS: vancomycin 500 MG in sodium chloride 0.9% (plus) 100 ML 200 MG IV (04:53)
[2021-04-02 05:30] LABS: Basophils % 0.7 %; Hematocrit 30.4 % (42.0-52.0); Lymphocytes # 0.1 10^3/uL (0.8-4.8); Lymphocytes % 2.9 %; Mean Corpuscular HGB Conc 32.9 g/dL (30.0-36.0); Mean Corpuscular Volume 94.1 fl (80-94); Monocytes # 0.1 10^3/uL (0.2-0.9); Monocytes % 3.1 %; Neutrophils # 4.11 10^3/uL (1.8-7.7); Neutrophils % 91.1 %; Nucleated Red Blood Cells % 0.9 %; Red Blood Count 3.23 10^6/uL (4.1-5.3); Red Cell Distribution Width 13.5 % (12.1-15.1); White Blood Count 4.5 10^3/uL (4.0-10.0)
[2021-04-02 05:48] LABS: Alanine Aminotransferase 20 U/L (0-41); Albumin Level 3.3 g/dL (3.5-5.2); Alkaline Phosphatase 56 IU/L (40-130); Anion Gap 25.4 (5-19); Aspartate Amino Transferase 38 U/L (0-40); Calcium 7.5 mg/dL (8.5-10.5); Carbon Dioxide 14 mmol/L (22-29); Chloride 119 mmol/L (98-107); Globulin 2.1 g/dL (1.3-4.6); Glucose 178 mg/dL (65-115); Osmolality Calculated 353 mOsm/kg (285-295); Potassium 4.4 mmol/L (3.5-5.1); Sodium 154 mmol/L (136-145); Total Protein 5.4 g/dL (6.6-8.7)
--- NOTE | 2021-04-02 06:03 | PC.NURSE ---
Shift Note Frequent safety and comfort rounds continue. Orders and/or nursing care completed as indicated. Patient monitored for response to intervention and treatment(s) . Patient and/or lead generation representative unable to comprehend teaching. Will continue to monitor.
--- NOTE | 2021-04-02 06:05 | PC.NURSE ---
Patient had very little urine output overnight. Bladder scanned patient, less that 20 ml detected by scanner. Irrigated velez catheter, velez irrigated easily.
[2021-04-02 06:13] LABS: Blood Urea Nitrogen 98 mg/dL (8-23)
[2021-04-02 06:15] LABS: Slide Review Slide Review Perform
[2021-04-02 06:16] LABS: Platelet Count 21 10^3/cmm (130-400)
[2021-04-02 07:50] LABS: INR 5.47 (0.8-1.2)
[2021-04-02] MEDS: budesonide 0.5 mg/2 mL Neb INHALATION ×2 (08:11→19:46)
[2021-04-02] MEDS: octreotide 500 MCG in sodium chloride 0.9% (100 ml) 100 ML 10.1 MCG IV ×2 (08:31→16:23)
[2021-04-02] MEDS: phytonadione (ADULT) 10 mg/mL Ampule 1 mL SUBCUT (08:34)
[2021-04-02] MEDS: dexamethasone 10 mg/mL INJ 6 MG IVP (08:35)
--- NOTE | 2021-04-02 09:11 | PC.OT ---
OT orders received to evaluate and treat; pt. still on hold per nursing.
--- NOTE | 2021-04-02 13:52 | P.PN_ITS ---
Subjective Subjective: Interval history: Nahum nairans a little when I stimulate him. Nurse relates that she has not had to restart his pressor. FiO2 requirement has increased. Last night the impregnating machine operator added octreotide for concern of hepatorenal syndrome. He was previously on midodrine and albumin. Midodrine cannot currently be given as he is not alert enough to take p.o. He was also pl aced on a Bumex drip but has not responded. Medications: Reviewed: Yes Vitals/I&O/Wt Last Vital Signs Temp 97.2 F L 04/02/21 04:00 Pulse 87 04/02/21 12:00 Resp 39 H 04/02/21 12:00 BP 129/89 04/02/21 12:00 Pulse Ox 88 L 04/02/21 12:00 04/01/21 04/02/21 04/02/21 22:59 06:59 14:59 Intake Total 326.61 / 1680.095 266.11 / 1946.205 612.841 / 612.841 Output Total 150 / 150 Balance 176.61 / 1530.095 266.11 / 1796.205 612.841 / 612.841 Weight last 48 hrs Weight 61.689 kg Weight 63.503 kg Physical Exam Narrative: EXAM NARRATIVE: General exam is a white male, on BiPAP with si gnificant tachypnea with minimal responsiveness HEENT: Atraumatic normocephalic Oropharynx not examined secondary BiPAP Neck is supple no lymphadenopathy or thyromegaly Cardiovascular regular rate and rhythm, sounds distant Lungs coarse breath sounds with a few crackles bilaterally. Tachypneic Abdomen is soft. No obvious mass exam demonstrates Shaw with very poor output Extremities no cyanosis clubbing or edema, a few scattered abrasions. Data : 04/02/21 04:10 04/02/21 04:10 Micro: Microbiology 03/29/21 15:25 Urine Culture - Final Urine Catheterized A&P Assessment and plan (1) Altered mental status: Multifactorial. He is not improved today Status: Acute Qualifiers: Altered mental status type: stupor Qualified Code(s): R40.1 - Stupor (2) Sepsis: Now off norepinephrine. Continue IV Zosyn and vancomycin. Cultures negative to date. Status: Acute Qualifiers: Acute respiratory failure type: with hypoxia Sepsis acute organ dysfunction status: with acute organ dysfunction Sepsis type: sepsis due to unspecified organism Severe sepsis acute organ dysfunction type: acute respiratory failure Severe sepsis shock status: without septic shock Qualified Code(s): A41.9 - Sepsis, unspecified organism; R65.20 - Severe sepsis without septic shock; J96.01 - Acute respiratory failure with hypoxia (3) Rhabdomyolysis: CK had drifted down to 415. No reason to recheck. Status: Acute Qualifiers: Rhabdomyolysis type: non-traumatic Qualified Code(s): M62.82 - Rh abdomyolysis (4) Acute renal failure: Continues to worsen Increasing acidosis Hepatorenal syndrome is a possibility. For now continue octreotide and albumin Blood pressure is adequate for perfusion Overall prognosis is poor. Family reports they would not want dialysis. No obstruction on CT done on admission Discontinue Bumex drip Initiate D5W with 100 mEq of sodium bicarb per liter to run at 50 cc an hour Status: Acute Qualifiers: Acute renal failure type: unspecified Qualified Code(s): N17.9 - Acute kidney failure, unspecified (5) Pneumonia: Continue Zosyn, vancomycin, pulmonary toilet. Await sputum culture. Status: Acute Qualifiers: Laterality: right Lung location: upper lobe of lung Pneumonia type: due to unspecified organism Qualified Code(s): J18.9 - Pneumonia, unspecified organism (6) Lactic acidemia: Status: Acute (7) Decubitus ulcer of back, unstageable: Status: Acute (8) Fall in elderly patient: Status: Acute (9) Debilitated patient: Status: Acute (10) COVID-19: Continue dexamethasone Renal function has worsened significantly. Remdesivir discontinued. Currently on BiPAP, wean as tolerated Actemra and baricitinib not given secondary to high likelihood of bacterial infection with elevated procalcitonin Status: Acute (11) Lacunar infarction: Status: Acute (12) Facial trauma: Status: Acute (13) Hypoxia: Status: Acute (14) Alcohol withdrawal: Currently on Precedex to tolerate BiPAP. Ativan is not needed so discontinued. Status: Acute (15) Thrombocytopenia: Platelets have worsened, along with INR with concern of significant liver failure. Glucose this morning 178. Vitamin K given, repeat INR tomorrow Prognosis poor Status: Acute (16) Septic shock: Status: Acute Additional A&P Information Hypernatremia. Restart hypotonic fluids History of facial trauma. Some air right masseter. Consider CT facial bones if significant improvement. Previous hypotension. Echo demonstrated EF of around 38%, diffusely hypokinetic left ventricle, mild aortic regurgitation, trace tricuspid regurgitation Allow natural Has femoral line SCDs for DVT prophylaxis. Anticoagulation contraindicated secondary to worsening platelets and elevated INR If patient starts to suffer, starts to clinically deteriorate, family is okay with proceeding with comfort care Dominik Sheriff [phone] Raymon Sheriff [phone] Attestations Medical Necessity Statement*: Needs continued hospitalization in the ICU secondary to hepatic, renal failure with COVID. Requiring significant respiratory support. Prognosis poor. Critical Care Time: The high probability of a clinically significant, sudden or life threatening deterioration of the patient's [pulmonary, hepatic, renal] system(s) required my full and direct attention, intervention and personal management. The critical care time is as shown. This time is in addition to time spent performing any reported procedures but includes the following: [x] Data and vital sign review and interpretation [x] Patient assessment, examination and intervention [x] Documentation [x] Medication orders and management Critical Care Time (min): 36 Coding Level of Care Code Acute Customer Training Specialist for [facility] Fwd Diagnoses Altered mental status R40.1 Altered mental status type: stupor Sepsis A41.9; R65.20; J96.01 Acute respiratory failure type: with hypoxia Sepsis acute organ dysfunction status: with acute organ dysfunction Sepsis type: sepsis due to unspecified organism Severe sepsis acute organ dysfunction type: acute respiratory failure Severe sepsis shock status: without septic shock Rhabdomyolysis M62.82 Rhabdomyolysis type: non-traumatic Acute renal failure N17.9 Acute renal failure type: unspecified Pneumonia J18.9 Laterality: right Lung location: upper lobe of lung Pneumonia type: due to unspecified organism Lactic acidemia E87.2 Decubitus ulcer of back, unstageable L89.100 Fall in elderly patient R29.6 Debilitated patient R53.81 COVID-19 U07.1 Lacunar infarction I63.81 Facial trauma S09.93XA Hypoxia R09.02 Alcohol withdrawal F10.239 Thrombocytopenia D69.6 Septic shock A41.9; R65.21
[2021-04-02 16:01] LABS: Anion Gap 23.2 (5-19); Carbon Dioxide 15 mmol/L (22-29); Chloride 121 mmol/L (98-107); Glucose 110 mg/dL (65-115); Osmolality Calculated 351 mOsm/kg (285-295); Potassium 4.2 mmol/L (3.5-5.1); Sodium 155 mmol/L (136-145)
[2021-04-02 16:03] LABS: Blood Urea Nitrogen 99 mg/dL (8-23); Calcium 5.8 mg/dL (8.5-10.5)
[2021-04-02] MEDS: calcium chloride 10% Syr 10 mL 1 GM IVP (16:24)
--- NOTE | 2021-04-02 16:35 | NUR.SHIFT ---
Shift Note Frequent safety and comfort rounds continue. Orders and/or nursing care completed as indicated. Patient monitored for response to intervention and treatment(s). Education provided to family on status and pt very grim , did talk with Dr Aguayo about comfort care if no improvement. Will continue to monitor.
[2021-04-02] MEDS: morphine 4 mg/mL SDV 1 mL 2 MG IVP ×2 (19:11→23:18)
--- NOTE | 2021-04-02 21:34 | PC.NURSE ---
Patient's lung sounds have crackles throughout. Has worsened over the last 2 hours. Patient has also started producing a large amount of oral secrections which nurse franca been suctioning. Nurse alerted Dr rincon and received an order for scopolamine patch.
[2021-04-02] MEDS: scopolamine 1.5 Patch 1 PATCH TRANSDERMA (22:10)
[2021-04-02] MEDS: pantoprazole 40 mg SDV IVP (23:18)
[2021-04-03] VITALS (33 sets, daily range): BP systolic 104–164; BP diastolic 73–108; PULSE 71–92; RESP 15–49; TEMP 35.9–37.1; O2SAT 84–94
[2021-04-03] MEDS: piperacillin-tazobactam 3.375 GM in sodium chloride 0.9% (plus) 50 ML IV (02:32)
[2021-04-03] MEDS: morphine 4 mg/mL SDV 1 mL 2 MG IVP (03:18)
[2021-04-03 03:52] LABS: Basophils # 0.1 10^3/uL (0.0-0.1); Basophils % 0.9 %; Hematocrit 31.1 % (42.0-52.0); Hemoglobin 10.4 g/dL (11.7-16.6); Lymphocytes # 0.1 10^3/uL (0.8-4.8); Lymphocytes % 1.9 %; Mean Corpuscular HGB Conc 33.4 g/dL (30.0-36.0); Mean Corpuscular Hemoglobin 31.3 pg (28.0-34.0); Mean Corpuscular Volume 93.7 fl (80-94); Monocytes # 0.1 10^3/uL (0.2-0.9); Monocytes % 2.2 %; Neutrophils # 5.27 10^3/uL (1.8-7.7); Neutrophils % 90.4 %; Nucleated Red Blood Cells # 0.1 /100WBC; Nucleated Red Blood Cells % 2.2 %; Red Blood Count 3.32 10^6/uL (4.1-5.3); Red Cell Distribution Width 13.7 % (12.1-15.1); White Blood Count 5.8 10^3/uL (4.0-10.0)
[2021-04-03 03:55] LABS: INR 2.94 (0.8-1.2)
[2021-04-03 04:05] LABS: Alanine Aminotransferase 16 U/L (0-41); Albumin Level 3.8 g/dL (3.5-5.2); Alkaline Phosphatase 65 IU/L (40-130); Anion Gap 27.9 (5-19); Aspartate Amino Transferase 34 U/L (0-40); Calcium 6.6 mg/dL (8.5-10.5); Carbon Dioxide 16 mmol/L (22-29); Chloride 117 mmol/L (98-107); Globulin 1.6 g/dL (1.3-4.6); Glucose 132 mg/dL (65-115); Potassium 4.9 mmol/L (3.5-5.1); Sodium 156 mmol/L (136-145); Total Bilirubin 1.3 mg/dL (0.15-1.2); Total Protein 5.4 g/dL (6.6-8.7)
[2021-04-03] MEDS: dexmedeTOMIDine 0.9 % NaCL 400 MCG/100 ML PREMIX IV (04:16)
[2021-04-03 04:25] LABS: Blood Urea Nitrogen 123 mg/dL (8-23); Osmolality Calculated 363 mOsm/kg (285-295); Platelet Count 22 10^3/cmm (130-400)
[2021-04-03 04:26] LABS: Slide Review Slide Review Perform
[2021-04-03] MEDS: octreotide 500 MCG in sodium chloride 0.9% (100 ml) 100 ML 10.1 MCG IV (05:37)
[2021-04-03] MEDS: vancomycin 500 MG in sodium chloride 0.9% (plus) 100 ML 200 MG IV (05:40)
--- NOTE | 2021-04-03 06:18 | PC.NURSE ---
SHift SUmmary: Uneventful shift. Patient condition remains unchanged. Unresponsive, withdrawn from pain and will occasionally mumble incomprehensible sounds. Patient has facial trauma to the bridge of the nose. Nurse attempted to change BIPAP mask to the larger full face mask as it appeared to be causing pain to the patient, but we were unable to maintain a proper seal and reverted back to the smaller facepiece. Scopolamine patch applied to control excessive secretions. Family has been updated on patient condition.
--- NOTE | 2021-04-03 07:32 | PM.PN ---
Subjective Subjective: Interval history: No urine output overnight. Not responsive. FiO2 requirement has increased to 100% Medications: Reviewed: Yes Vitals/I&O/Wt Last Vital Signs Temp 96.6 F L 04/03/21 00:00 Pulse 79 04/03/21 06:15 Resp 24 H 04/03/21 05:00 BP 113/75 04/03/21 05:00 Pulse Ox 92 04/03/21 06:15 04/02/21 04/03/21 04/03/21 22:59 06:59 14:59 Intake Total 179.453 / 792.294 232.462 / 1024.756 Output Total 150 / 150 0 / 150 Balance 29.453 / 642.294 232.462 / 874.756 Weight last 48 hrs Weight 65.771 kg Weight 61.689 kg Physical Exam Narrative: EXAM NARRATIVE: General exam unresponsive HEENT: Atraumatic normocephalic Oropharynx not examined secondary BiPAP Neck is supple no lymphadenopathy or thyromegaly Cardiovascular regular rate and rhythm, sounds distant Lungs coarse breath sounds bilaterally Abdomen is soft. No obvious mass exam demonstrates Shaw with very poor output Extremities no cyanosis clubbing or edema, a few scattered abrasions. Data : 04/03/21 02:49 04/03/21 02:49 A&P Assessment and plan (1) Altered mental status: Worsened Status: Acute Qualifiers: Altered mental status type: stupor Qualified Code(s): R40.1 - Stupor (2) Sepsis: Now off norepinephrine. Resolved with significant renal failure Status: Acute Qualifiers: Acute respiratory failure type: with hypoxia Sepsis acute organ dysfunction status: with acute organ dysfunction Sepsis type: sepsis due to unspecified organism Severe sepsis acute organ dysfunction type: acute respiratory failure Severe sepsis shock status: without septic shock Qualified Code(s): A41.9 - Sepsis, unspecified organism; R65.20 - Severe sepsis without septic shock; J96.01 - Acute respiratory failure with hypoxia (3) Rhabdomyolysis: CK had drifted down to 415. No reason to recheck. Status: Acute Qualifiers: Rhabdomyolysis type: non-traumatic Qualified Code(s): M62.82 - Rhabdomyolysis (4) Acute renal failure: Worsened. No urine output. Increasing hypoxia. Hepatorenal syndrome is a possibility. Was treated with octreotide, albumin, midodrine when taking p.o. Overall prognosis is poor. Family reports they would not want dialysis. Family wishes to move to comfort measures. No obstruction on CT done on admission Status: Acute Qualifiers: Acute renal failure type: unspecified Qualified Code(s): N17.9 - Acute kidney failure, unspecified (5) Pneumonia: Currently on Zosyn, vancomycin, pulmonary toilet. Moved to comfort measures Status: Acute Qualifiers: Laterality: right Lung location: upper lobe of lung Pneumonia type: due to unspecified organism Qualified Code(s): J18.9 - Pneumonia, unspecified organism (6) Lactic acidemia: Status: Acute (7) Decubitus ulcer of back, unstageable: Status: Acute (8) Fall in elderly patient: Status: Acute (9) Debilitated patient: Status: Acute (10) COVID-19: Worsening despite treatment. Moved to comfort measures. Status: Acute (11) Lacunar infarction: Status: Acute (12) Facial trauma: Status: Acute (13) Hypoxia: Status: Acute (14) Alcohol withdrawal: Currently on Precedex to tolerate BiPAP. Ativan is not needed so discontinued. Status: Acute (15) Thrombocytopenia: Significant liver failure. Moving to comfort measures. Status: Acute (16) Septic shock: Status: Acute Additional A&P Information Hypernatremia. History of facial trauma. Some air right masseter. Consider CT facial bones if significant improvement. Previous hypotension. Echo demonstrated EF of around 38%, diffusely hypokinetic left ventricle, mild aortic regurgitation, trace tricuspid regurgitation Allow natural Has femoral line SCDs for DVT prophylaxis. Anticoagulation contraindicated secondary to worsening platelets and elevated INR If patient starts to suffer, starts to clinically deteriorate, family is okay with proceeding with comfort care Dominiktata Sheriff [phone] Raymon Sheriff [phone] Currently moving to comfort measures. Attestations Medical Necessity Statement*: Severe multiorgan dysfunction, moving to comfort measures, requiring continued hospital stay for comfort. Coding Level of Care Code Acute Deployment Manager for [facility] Diagnoses Altered mental status R40.1 Altered mental status type: stupor Sepsis A41.9; R65.20; J96.01 Acute respiratory failure type: with hypoxia Sepsis acute organ dysfunction status: with acute organ dysfunction Sepsis type: sepsis due to unspecified organism Severe sepsis acute organ dysfunction type: acute respiratory failure Severe sepsis shock status: without septic shock Rhabdomyolysis M62.82 Rhabdomyolysis type: non-traumatic Acute renal failure N17.9 Acute renal failure type: unspecified Pneumonia J18.9 Laterality: right Lung location: upper lobe of lung Pneumonia type: due to unspecified organism Lactic acidemia E87.2 Decubitus ulcer of back, unstageable L89.100 Fall in elderly patient R29.6 Debilitated patient R53.81 COVID-19 U07.1 Lacunar infarction I63.81 Facial trauma S09.93XA Hypoxia R09.02 Alcohol withdrawal F10.239 Thrombocytopenia D69.6 Septic shock A41.9; R65.21
--- NOTE | 2021-04-03 07:46 | PC.OT ---
OT/PT EVALUATIONS CANCELLED DUE TO PATIENT PLACED ON COMFORT CARE.
[2021-04-03] MEDS: LORazepam 2 mg/mL INJ 1 mL IVP (08:57)
[2021-04-03] MEDS: morphine 4 mg/mL SDV 1 mL IVP ×2 (08:58→09:21)
[2021-04-03] MEDS: glycopyrrolate 0.2 mg/mL SDV 2 mL IV (09:02)
--- NOTE | 2021-04-03 09:24 | PC.CHAP ---
Pastoral Care Encounter/Spiritual Assessment Type of Contact [] Declined audience coordinator visit [] Patient/Family/Request visit [] Outpatient visit [] Follow-up visit [] Physician referral [] Code/Alert [x] Routine visit [] Staff referral [] Actively dying [] Patient sleeping [x] Family support [] [] Out of room [] Palliative care [] [] Receiving care in room [] Pre-surgical visit [] Trauma [] Long length of stay [x] ICU visit [x] Other: vent Relational/Emotional Strength [] Patient feels connected with others/family/visitors/staff [] Distress [] Loneliness/isolation [] Abandonment Spirituality of Patient [] Person of Love [] Attends Spiritism of their Love [] Believes in Prayer [] Reads Bible or Advent materials [] There are Spiritual issues to be addressed Mcat Tutor Interventions [x] Prayer [] Active listening [] Non-anxious presence [] Spiritual/emotional support [] Crisis/trauma care [] Spiritual counseling [] Bereavement support [] Provided bereavement packet [] Provided Bible/devotional materials [] Provided toy/stuffed animal, coloring book to patient or family member [] Provided Communion [] Anointing/[place] [] Salvation [x] Completed spiritual assessment [] Other: Impact on Illness or Injury [] Angry [] Fearful [] Anxious [] Often cries [] Exhaustion [] Unable to work [] Unable to attend faith [] Unable to walk/stand [] Unable to read [] Unable to drive [] Unable to eat/drink [] Unable to sleep [] Unable to be with family [] Patient intubated [] Other: Summary vent being removed.. family member present... audience coordinator will be notified when time ..... Time spent with patient 10 min
--- NOTE | 2021-04-03 10:01 | PC.CHAP ---
Pastoral Care Encounter/Spiritual Assessment Type of Contact [] Declined all around patternmaker visit [] Patient/Family/Request visit [] Outpatient visit [] Follow-up visit [] Physician referral [] Code/Alert [x] Routine visit [] Staff referral [] Actively dying [] Patient sleeping [] Family support [] [] Out of room [] Palliative care [] [] Receiving care in room [] Pre-surgical visit [] Trauma [] Long length of stay [x] ICU visit [] Other: Relational/Emotional Strength [] Patient feels connected with others/family/visitors/staff [] Distress [] Loneliness/isolation [] Abandonment Spirituality of Patient [x] Person of Love [] Attends Jew of their Love [] Believes in Prayer [] Reads Bible or Druze materials [] There are Spiritual issues to be addressed Caustic Mixer Interventions [x] Prayer [] Active listening [] Non-anxious presence [] Spiritual/emotional support [] Crisis/trauma care [] Spiritual counseling [x] Bereavement support [] Provided bereavement packet [] Provided Bible/devotional materials [] Provided toy/stuffed animal, coloring book to patient or family member [] Provided Communion [] Anointing/[place] [] Salvation [x] Completed spiritual assessment [] Other: Impact on Illness or Injury [] Angry [] Fearful [] Anxious [] Often cries [] Exhaustion [] Unable to work [] Unable to attend jewish [] Unable to walk/stand [] Unable to read [] Unable to drive [] Unable to eat/drink [] Unable to sleep [] Unable to be with family [] Patient intubated [] Other: Summary Nahum passed with daughter in law present... Time spent with patient
--- NOTE | 2021-04-03 10:58 | PC.NURSE ---
Patient moved to comfort care 0739. Patient family arrived and comfort care began at approximately 0900. Patient passed with family at bedside at 0943.
--- NOTE | 2021-04-03 15:45 | PM.DDS ---
Discharge Providers DDS Date of Admission: 03/29/21 18:20 Date Summary Completed: 04/03/21 Attending Provider at Admission: Tyler Jackson MD Time of : 09:43 Attending Provider at Discharge: Servando Aguayo MD Primary Care Provider: Juanis Aguayo MD DS Diagnoses Hospital Diagnoses (1) Altered mental status: Qualifiers: Altered mental status type: stupor Qualified Code(s): R40.1 - Stupor (2) Sepsis: Qualifiers: Acute respiratory failure type: with hypoxia Sepsis acute organ dysfunction status: with acute organ dysfunction Sepsis type: sepsis due to unspecified organism Severe sepsis acute organ dysfunction type: acute respiratory failure Severe sepsis shock status: without septic shock Qualified Code(s): A41.9 - Sepsis, unspecified organism; R65.20 - Severe sepsis without septic shock; J96.01 - Acute respiratory failure with hypoxia (3) Rhabdomyolysis: Qualifiers: Rhabdomyolysis type: non-traumatic Qualified Code(s): M62.82 - Rhabdomyolysis (4) Acute renal failure: Qualifiers: Acute renal failure type: unspecified Qualified Code(s): N17.9 - Acute kidney failure, unspecified (5) Pneumonia: Qualifiers: Laterality: right Lung location: upper lobe of lung Pneumonia type: due to unspecified organism Qualified Code(s): J18.9 - Pneumonia, unspecified organism (6) Lactic acidemia: (7) Decubitus ulcer of back, unstageable: (8) Fall in elderly patient: (9) Debilitated patient: (10) COVID-19: (11) Lacunar infarction: (12) Facial trauma: (13) Hypoxia: (14) Alcohol withdrawal: (15) Thrombocytopenia: (16) Septic shock: Reason for Visit Reason for Visit: slurred speech, ams Summary Date and Time of Date of : 04/03/21 Time of : 09:43 Summary Summary: RespiratoryMrJanell Sheriff is a 70-year-old white male with past history of alcoholism who presented to the emergency department with altered mental status failure. He was found to have sepsis, rhabdomyolysis, renal failure, Covid 19 pneumonia, alcohol withdrawal. He was placed on oxygen, dexamethasone remdesivir and IV antibiotics consisting of vancomycin and Zosyn secondary to sepsis and concern for superimposed bacterial pneumonia. CT had done secondary to confusion on admission showed no obvious stroke. Small amount of air was noted right masseter area. Conversations with family occurred on admission and he was made DNR on admission. He decompensated during his hospital stay requiring central line placement, and norepinephrine. Oxygen requirement continued to increase. Renal failure continued to worsen. Echocardiogram was performed demonstrating EF of 38%. INR continued to climb. Concern for hepatorenal syndrome was present so patient received somatostatin, midodrine at one point, and albumin during his hospital stay. Despite aggressive treatment, he continued to worsen and by April 03 he was making no urine, he was significantly acidotic despite a bicarbonate drip, he was on 100% FiO2 by BiPAP, and difficult to arouse. Family had been thinking of transitioning him to comfort care for the last several days, and made that transition on April 03. He appeared comfortable, and quickly. Final diagnosis acute renal failure, acute liver failure, Covid 19 pneumonia with respiratory failure. Additional Data Advance directives?: Yes Discharge Plan Discharge Patient Disposition: At Medical Facility Condition: Stable Prescriptions: No Action Unable to Assess RF: 0 Referrals: Juanis Aguayo MD [Primary Care Provider] - Patient Instructions: Opioid Safety Probable Cause of Probable cause of : Cardiac arrest DS Attestations Time Spent in /Discharge Care*: greater than 30 min Quality - AMI: AMI present?: No Quality - Stroke: CVA present?: No Quality - VTE: VTE present?: No Coding Level of Care Code Acute Licensed Practical Nurse Clinic Nurse for [facility] Fwd Diagnoses Altered mental status R40.1 Altered mental status type: stupor Sepsis A41.9; R65.20; J96.01 Acute respiratory failure type: with hypoxia Sepsis acute organ dysfunction status: with acute organ dysfunction Sepsis type: sepsis due to unspecified organism Severe sepsis acute organ dysfunction type: acute respiratory failure Severe sepsis shock status: without septic shock Rhabdomyolysis M62.82 Rhabdomyolysis type: non-traumatic Acute renal failure N17.9 Acute renal failure type: unspecified Pneumonia J18.9 Laterality: right Lung location: upper lobe of lung Pneumonia type: due to unspecified organism Lactic acidemia E87.2 Decubitus ulcer of back, unstageable L89.100 Fall in elderly patient R29.6 Debilitated patient R53.81 COVID-19 U07.1 Lacunar infarction I63.81 Facial trauma S09.93XA Hypoxia R09.02 Alcohol withdrawal F10.239 Thrombocytopenia D69.6 Septic shock A41.9; R65.21
== END 2021-04-03 11:25 | disposition expired | DRG 871 ==
LOC: ER 17:16 → ER IP 18:21 → MEDSURG 03-30 14:40 → ICU 03-31 03:09
PROVIDERS: Admitting Provider Family Medicine; Emergency Provider Family Medicine; PCP Family Medicine; Visit Provider Internal Medicine
DX: A41.9 Sepsis, unspecified organism (principal); R65.21 Severe sepsis with septic shock; G93.41 Metabolic encephalopathy; J96.02 Acute respiratory failure with hypercapnia; J96.01 Acute respiratory failure with hypoxia; U07.1 COVID-19; J12.82 Pneumonia due to coronavirus disease 2019; S02.40EA Zygomatic fracture, right side, initial encounter for closed fracture; F10.239 Alcohol dependence with withdrawal, unspecified; E87.2 Acidosis; N17.9 Acute kidney failure, unspecified; M62.82 Rhabdomyolysis; E87.1 Hypo-osmolality and hyponatremia; L89.40 Pressure ulcer of contiguous site of back, buttock and hip, unspecified stage; E86.0 Dehydration; Z66 Do not resuscitate; D69.6 Thrombocytopenia, unspecified; W19.XXXA Unspecified fall, initial encounter; I46.9 Cardiac arrest, cause unspecified; Z51.5 Encounter for palliative care; K72.90 Hepatic failure, unspecified without coma; I95.9 Hypotension, unspecified
CPT/HCPCS: 36415; 36592; 36600; 70450; 71045; 71250; 72125; 74176; 80048; 80051; 80053; 80061; 80202; 80306; 80307; 81001; 82140; 82330; 82550; 82803; 82805; 83036; 83605; 83735; 83880; 84100; 84145; 84443; 84484; 85007; 85025; 85378; 85610; 86140; 86403; 87040; 87086; 87449; 87635; 87641; 92523; 92610; 93005; 93306; 94640; 94660; 94664; 96365; 96367; 96372; 96375; 99285; C9113; J0456; J0610; J0696; J1100; J1630; J1650; J1720; J1940; J1953; J2060; J2270; J2354; J2543; J3370; J3411; J3430; J3480; J3490; J7030; J7050; J7626; P9047